=== PATIENT | male | born 1955 | race Two or more races ===

== ENCOUNTER 2018-08-06 18:37 | Inpatient (IN) | payer OTHER ==
[~2018-08-06] VITALS: Ht 170.2 cm; Wt 53.1 kg
[2018-08-06 22:30] VITALS: BP 145/84
--- NOTE | 2018-08-06 22:41 | NUR ---
MS/RN RECEIVED PATIENT FROM [facility] VIA AMBULANCE. PATIENT WAS AOX4, COMFORTABLE, NO C/O PAIN, NO DISTRESS NOTED, PATIENT'S C/C IS NO BOWEL MOVEMENT X 3 DAYS, ENEMA WAS GIVEN IN [facility], PER PATIENT NO BOWEL MOVEMENT YET. ADMISSION WAS DONE PER PROTOCOL, SENT MESSAGE TO DR. ОЛЕГ FRAZIER FOR ADMISSION ORDERS.
[2018-08-06] MEDS ORDERED: TAMS0.4C34 PO (23:10)
[2018-08-06 23:22] VITALS: BP 145/84
[2018-08-07] MEDS ORDERED: ONDANSETRON HCL/PF 4 MG/2 ML VIAL IVP PRN
[2018-08-07] MEDS ORDERED: MAGNESIUM HYDROXIDE 30 ML UDC PO PRN
[2018-08-07] MEDS ORDERED: PIPERACILLIN /TAZOBACTAM 3.375 G in IV D5W 50 ML IV SCH ×2
[2018-08-07] MEDS ORDERED: MORPHINE SULFATE INJ 2 MG/ML DISP.SYRIN IV PRN
[2018-08-07] MEDS ORDERED: LACTULOSE 10 G/15 ML UDC (PYXIS) PO PRN
[2018-08-07] MEDS ORDERED: HYDROCODONE/APAP 5/325MG 1 EACH TABLET PO PRN
[2018-08-07] MEDS ORDERED: Z GUARD REMEDY 2 OZ OINT TP PRN
[2018-08-07] MEDS ORDERED: METRONIDAZOLE 500MG/ NS 100ML 100 ML IV ONE (00:23)
[2018-08-07] MEDS ORDERED: PIPERACILLIN /TAZOBACTAM 3.375 G VIAL IV ONE (00:24)
[2018-08-07] MEDS: IV NS 0.9% 1,000 ML IV PRN ×2 (00:30→16:34)
[2018-08-07] MEDS ORDERED: PIPERACILLIN /TAZOBACTAM 3.375 G in IV D5W 50 ML IV ONE (00:30)
[2018-08-07] MEDS: METRONIDAZOLE 500MG/ NS 100ML 500 MG in PREMIX 1 EA IV SCH ×3 (01:22→16:28)
--- NOTE | 2018-08-07 06:39 | NUR ---
MS/RN PATIENT IS SLEEPING, APPEAR COMFORTABLE, NO DISTRESS NOTED, ALL NEEDS ATTENDED AT THIS TIME, WILL CONTINUE TO MONITOR.
[2018-08-07 07:00] LABS: BASOPHILS % (AUTO) 0.4 % (0.0-2.0); EOSINOPHILS % (AUTO) 0.7 % (0.0-6.0); HEMATOCRIT 36 % (39-51); HEMOGLOBIN 12.1 g/dL (13.5-17.5); LYMPHOCYTES # (AUTO) 2.3 /CMM (0.8-4.8); LYMPHOCYTES % (AUTO) 24.4 % (20.0-44.0); MEAN CORPUSCULAR HGB CONC 33 g/dl (31.0-36.0); MEAN CORPUSCULAR VOLUME 80 fL (80-96); MONOCYTES # (AUTO) 0.8 /CMM (0.1-1.30); MONOCYTES % (AUTO) 9.1 % (2.0-12.0); NEUTROPHILS # (AUTO) 6.1 /CMM (1.8-8.9); NEUTROPHILS % (AUTO) 65.4 % (43.0-81.0); PLATELET COUNT (AUTO) 263 /CMM (150-450); RED BLOOD CELL COUNT(AUTO) 4.58 MIL/uL (4.5-6.0); WHITE BLOOD COUNT (AUTO) 9.3 K/uL (4.3-11.0)
[2018-08-07 07:19] LABS: CALCIUM, SERUM 8.8 mg/dL (8.5-10.1); CREATININE 0.9 mg/dL (0.6-1.3); MAGNESIUM 1.8 mg/dL (1.8-2.4); PHOSPHORUS 2.9 mg/dL (2.5-4.9); POTASSIUM 3.8 mmol/L (3.5-5.1)
--- NOTE | 2018-08-07 07:20 | NUR ---
MSRN. PT RECEIVED A&0X4, AWAKE AND RESTING IN BED WITH T.V. PT TOLERATING ROOM AIR WITHOUT DISTRESS AND DENIES PAIN. PT WITH IVC AT R AC INTACT AND OPERATIONAL WITH IVF PER RX. PT REMAINS WITHOUT BM. PT BED IN LOWEST LOCKED POSITION WITH HANDRAILSX2 AND CALL MEZA WITHIN REACH. PT BRIEFED ON TODAY'S POC AND IS WITHOUT CONCERN OR COMPLAINT AT THIS TIME. WILL CONTINUE POC.
[2018-08-07 07:26] LABS: THYROID STIMULATING HORMONE 1.115 uIU/mL (0.358-3.74)
[2018-08-07 08:00] VITALS: BP 147/75
[2018-08-07] MEDS ORDERED: HYDROMORPHONE INJ 0.5 MG/0.5 ML SYRINGE IV PRN (08:30)
[2018-08-07] MEDS: PIPERACILLIN /TAZOBACTAM 3.375 G in IV D5W 100 ML IV SCH ×3 (09:09→23:27)
[2018-08-07 16:00] VITALS: BP 155/76
[2018-08-07] MEDS ORDERED: BISACODYL SUPP (10 MG) 10 MG/SUPP.RECT SUPP.RECT RC PRN (17:30)
--- NOTE | 2018-08-07 18:09 | NUR ---
MSRN. PT REMAINS A&0X4, WATCHING FOOTBALL IN BED. PT TOLERATING ROOM AIR WITHOUT DISTRESS AND DENIES PAIN. PT WITH IVC AT R AC INTACT AND OPERATIONAL. PT WITH MULTIPLE SML BM DURING SHIFT. PT BED IN LOWEST LOCKED POSITION WITH HANDRAILSX2 AND CALL MEZA WITHIN REACH. PT WITHOUT CONCERN OR COMPLAINT AT THIS TIME. WILL ENDORSE TO NIGHT NURSE AT BEDSIDE FOR NETTA.
[2018-08-07 20:00] VITALS: BP 158/84
[2018-08-07] MEDS: TAMSULOSIN 0.4 MG CAP.SR.24H PO SCH (21:18)
[2018-08-07] MEDS: ACETAMINOPHEN 325 MG TABLET PO PRN (23:40)
--- NOTE | 2018-08-07 23:42 | NUR ---
MS RN NOTES: PT COMPLAINING OF STOMACH PAIN THAT JUST STARTED EVEN WHEN HE IS LAYING DOWN. PT WAS ADMINISTERED TYLENOL 650MG PO. WILL CONTINUE TO MONITOR.
[2018-08-08] MEDS: METRONIDAZOLE 500MG/ NS 100ML 500 MG in PREMIX 1 EA IV SCH ×3 (00:29→16:18)
--- NOTE | 2018-08-08 06:47 | NUR ---
MS RN NOTES AWAKE & RESPONSIVE. NOT IN ANY DISTRESS. NO SOB NOTED. DENIES ANY PAIN OR DISCOMFORT AT THIS TIME. WITH IV-HL PATENT & INTACT. MONITORED ACCORDINGLY. CALL LIGHT WITHIN REACH. BED IN LOWEST POSITION. SR UP X 2 FOR SAFETY. WILL ENDORSE TO NEXT SHIFT.
--- NOTE | 2018-08-08 07:25 | NUR ---
MSRN. PT RECEIVED A&0X4, ATTENDING ADLS. PT TOLERATING ROOM AIR WITHOUT DISTRESS AND DENIES PAIN. PT WITH IVC AT R AC INTACT AND OPERATIONAL REFUSING FLUIDS AT THIS TIME. PT BED IN LOWEST LOCKED POSITION WITH HANDRAILSX2 AND CALL MEZA WITHIN REACH. PT BRIEFED ON TODAY'S POC AND IS WITHOUT CONCERN OR COMPLAINT AT THIS TIME. WILL CONTINUE POC.
[2018-08-08 08:00] VITALS: BP 132/87
[2018-08-08] MEDS: PIPERACILLIN /TAZOBACTAM 3.375 G in IV D5W 100 ML IV SCH ×2 (08:55→15:57)
--- NOTE | 2018-08-08 10:34 | NUR ---
MSRN. MD VALDEZ CONTACTED R/T TO PT AND REQUESTING GI BE ON PT CASE AND REQUESTING CONSENTS FOR CT DRAINAGE OF ABSCESS.
[2018-08-08] MEDS ORDERED: MAGNESIUM CITRATE 296 ML BOTTLE PO PRN (12:00)
[2018-08-08] MEDS ORDERED: NA PHOS,M-B/NA PHOS,DI-BA 1 EA ENEMA RC PRN (12:00)
[2018-08-08 13:15] LABS: BASOPHILS % (AUTO) 0.4 % (0.0-2.0); EOSINOPHILS % (AUTO) 0.5 % (0.0-6.0); HEMATOCRIT 39 % (39-51); HEMOGLOBIN 12.7 g/dL (13.5-17.5); LYMPHOCYTES # (AUTO) 1.8 /CMM (0.8-4.8); LYMPHOCYTES % (AUTO) 19.7 % (20.0-44.0); MEAN CORPUSCULAR HGB CONC 33 g/dl (31.0-36.0); MEAN CORPUSCULAR VOLUME 79 fL (80-96); MONOCYTES # (AUTO) 0.8 /CMM (0.1-1.30); MONOCYTES % (AUTO) 8.5 % (2.0-12.0); NEUTROPHILS # (AUTO) 6.6 /CMM (1.8-8.9); NEUTROPHILS % (AUTO) 70.9 % (43.0-81.0); PLATELET COUNT (AUTO) 318 /CMM (150-450); RED BLOOD CELL COUNT(AUTO) 4.88 MIL/uL (4.5-6.0); WHITE BLOOD COUNT (AUTO) 9.3 K/uL (4.3-11.0)
[2018-08-08 13:28] LABS: CALCIUM, SERUM 9.2 mg/dL (8.5-10.1); POTASSIUM 3.6 mmol/L (3.5-5.1)
[2018-08-08 13:33] LABS: ALBUMIN 3.1 g/dL (3.4-5.0); BILIRUBIN,TOTAL 0.5 mg/dL (0.2-1.0); TOTAL PROTEIN, SERUM 7.7 g/dL (6.4-8.2)
--- NOTE | 2018-08-08 15:30 | NUR ---
MSRN. PT TO 315-1. CARE ENDORSED TO 3WEST DESHAUN GUILLAUME AT BEDSIDE. PT TOLERATING ROOM AIR WITHOUT DISTRESS AND DENIES PAIN OR DISCOMFORT. IVC INTACT AND OPERATIONAL AT R FA. PT WITH ALL BELONGINGS.
--- NOTE | 2018-08-08 15:30 | NUR ---
MS RN NOTES-- RECEIVED PT VIA [employer] IN STABLE CONDITION. REPORT GIVEN BY DESHAUN REYES. PT IS A/O X4, AFEBRILE. RESPIRATIONS ARE EVEN AND UNLABORED, NOT IN ANY ACUTE DISTRESS NOTED . PUPILS ARE REACTIVE TO LIGHT, BILATERAL HAND COLLABORATING SUPERVISING PHYSICIAN ARE STRONG AND EQUAL. DENIES ANY ABDOMINAL DISCOMFORT AT THIS TIME, DENIES ANY BLADDER DISCOMFORT. IV SITE TO LFA INTACT, NO INFILTRATION NOTED. DRESSING KEPT CLEAN AND DRY. SAFETY MEASURES ARE IN PLACE. INSTRUCTED PT TO USE CALL LIGHT WHEN ASSISTANCE IS NEEDED, CALL LIGHT IS LEFT WITHIN REACH. WILL MONITOR THROUGHOUT SHIFT FOR CONTINUITY OF CARE.
[2018-08-08] MEDS ORDERED: PEG 3350/NA SULF,BICARB,CL/KCL 4,000 ML BOTTLE PO ONE (17:00)
[2018-08-08] MEDS: ACETAMINOPHEN 325 MG TABLET PO PRN (17:46)
--- NOTE | 2018-08-08 18:12 | NUR ---
MS RN CLOSING NOTES NEEDS MET AND ANTICIPATED. PT REMAINS A/O X4, AFEBRILE. RESPIRATIONS ARE EVEN AND UNLABORED, NOT IN ANY ACUTE DISTRESS NOTED. DENIES ANY PAIN AT THIS TIME, NO C/O SOB, N/V. IV SITE TO LFA INTACT, NO INFILTRATION NOTED. DRESSING KEPT CLEAN AND DRY. PT SIGNED CONSENT FORMS FOR PROCEDURE TOMORROW WITH VERBAL AND WRITTEN AGREEMENT. PT AWARE GOLYTELY PREP NEEDS TO BE DONE AND STATED HE WILL BE COMPLIANT. SAFETY MEASURES ARE IN PLACE. REMINDED PT TO USE CALL LIGHT WHEN ASSISTANCE IS NEEDED, CALL LIGHT IS LEFT WITHIN REACH. WILL ENDORSE TO NEXT SHIFT FOR CONTINUITY OF CARE.
--- NOTE | 2018-08-08 19:15 | NUR ---
MS/RN OPENING NOTES PT RECEIVED AWAKE, FAMILY AT BEDSIDE. A/OX4. ON ROOM AIR, BREATHING EVEN AND UNLABORED. IN NO ACUTE DISTRESS OR PAIN AT THIS TIME. IV TO LFA PATENT AND INTACT. FOR PROCEDURE TOMORROW, CONSENTS SIGNED. PT AWARE TO FINISH GOLYTELY AND THEN NPO POST MIDNIGHT. BED IN LOW/LOCKED POSITION WITH CALL LIGHT IN REACH. BILATERAL UPPER SIDE RAILS IN PLACE. WILL CONTINUE TO MONITOR
[2018-08-08 20:00] VITALS: BP 139/82
[2018-08-08] MEDS: TAMSULOSIN 0.4 MG CAP.SR.24H PO SCH (21:41)
[2018-08-09] MEDS: PIPERACILLIN /TAZOBACTAM 3.375 G in IV D5W 100 ML IV SCH ×3 (00:03→17:11)
--- NOTE | 2018-08-09 06:36 | NUR ---
MS/RN CLOSING NOTES PT AWAKE, REMAINS ON ROOM AIR, BREATHING EVEN AND UNLABORED. DENIES SOB, PAIN AND IN NO ACUTE DISTRESS AT THIS TIME. NPO POST MIDNIGHT FOR PROCEDURE. CONSENTS SIGNED AND IN THE CHART. NO SIGNFICANT CHANGES OVERNIGHT. IV TO LFA PATENT AND INTACT. ALL NEEDS MET. BED REMAINS IN LOW/LOCKED POSITION WITH CALL LIGHT IN REACH. SIDE RAILS UPX2. WILL ENDORSE TO DAY SHIFT RN NETTA.
--- NOTE | 2018-08-09 07:03 | NUR ---
PT TAKEN DOWN TO OR IN STABLE CONDITION
[2018-08-09] MEDS ORDERED: BUPIVACAINE MPF 0.5% W/EPI INJ 30 ML VIAL ONE (07:12)
[2018-08-09] MEDS ORDERED: ANESTHESIA TRAY IN PYXIS 1 EA TRAY MC ONE (07:12)
[2018-08-09] MEDS ORDERED: LIDOCAINE HCL/PF 1% 30 ML SDV ONE (07:12)
[2018-08-09] MEDS ORDERED: BUPIVACAINE 0.5 % PF 150 MG/30 ML VIAL ONE (07:25)
[2018-08-09] MEDS ORDERED: FENTANYL PF 100MCG/2ML AMPUL ONE (07:48)
--- NOTE | 2018-08-09 08:49 | NUR ---
MS RN NOTES PATIENT CAME BACK FROM RECOVERY ROOM WITH STABLE VITAL SIGNS, REPORT GIVEN BY NED MEADE. NO ACUTE DISTRESS NOTED.BREATHING UNLABORED. ALERT ORIENTED X 4. DENIED ANY PAIN AT THIS TIME. SAFETY MEASURES IN PLACE. CALL LIGHT WITHIN REACH. WILL CONTINUE TO MONITOR ACCORDINGLY.
[2018-08-09] MEDS ORDERED: HYDROCODONE/APAP 5/325MG 1 EACH TABLET PO PRN (09:30)
[2018-08-09] MEDS ORDERED: MORPHINE SULFATE INJ 2 MG/ML DISP.SYRIN IV PRN (09:30)
[2018-08-09 10:26] LABS: BASOPHILS % (AUTO) 0.2 % (0.0-2.0); CALCIUM, SERUM 9.1 mg/dL (8.5-10.1); CREATININE 1.1 mg/dL (0.6-1.3); EOSINOPHILS % (AUTO) 0.2 % (0.0-6.0); HEMATOCRIT 41 % (39-51); HEMOGLOBIN 13.4 g/dL (13.5-17.5); LYMPHOCYTES # (AUTO) 1.1 /CMM (0.8-4.8); LYMPHOCYTES % (AUTO) 8.4 % (20.0-44.0); MAGNESIUM 1.7 mg/dL (1.8-2.4); MEAN CORPUSCULAR HGB CONC 33 g/dl (31.0-36.0); MEAN CORPUSCULAR VOLUME 80 fL (80-96); MONOCYTES # (AUTO) 0.4 /CMM (0.1-1.30); MONOCYTES % (AUTO) 2.7 % (2.0-12.0); NEUTROPHILS % (AUTO) 88.5 % (43.0-81.0); PHOSPHORUS 2.5 mg/dL (2.5-4.9); PLATELET COUNT (AUTO) 348 /CMM (150-450); POTASSIUM 3.4 mmol/L (3.5-5.1); RED BLOOD CELL COUNT(AUTO) 5.14 MIL/uL (4.5-6.0); WHITE BLOOD COUNT (AUTO) 13.5 K/uL (4.3-11.0)
[2018-08-09] MEDS ORDERED: POTASSIUM CL. PREMIX PERIPHER. 50 ML IV SCH (15:00)
[2018-08-09] MEDS ORDERED: Magnesium 1GM/D5W 100ML PREMIX 100 ML IV SCH (15:00)
[2018-08-09 16:00] VITALS: BP 130/81
--- NOTE | 2018-08-09 19:00 | NUR ---
MS RN NOTES PATIENT IN BED ALERT ORIENTED X 4. NO ACUTE DISTRESS NOTED. BREATHING UNLABORED. VITAL SIGNS MONITORED, WITHIN NORMAL LIMITS. DENIED ANY PAIN. IV ACCESS PATENT AND INTACT, NO REDNESS OR SWELLING NOTED.NEEDS ATTENDED AND ANTICIPATED. KEPT CLEAN DRY AND COMFORTABLE. DUE MEDICATIONS GIVEN, NO ASE NOTED. CALL LIGHT WITHIN REACH. SAFETY MEASURES IN PLACE. ENDORSED TO NIGHT NURSE FOR CONTINUITY OF CARE..
--- NOTE | 2018-08-09 19:33 | NUR ---
RN MS OPENING NOTES RECEIVED PATIENT RESTING IN BED. ALERT AND ORIENTED X4, VERBALLY RESPONSIVE, ABLE TO MAKE NEEDS KNOWN. BREATHING EVEN AND UNLABORED. NO SOB NOTED. TOLERATING ROOM AIR. CURRENTLY WITH NO COMPLAINTS OF PAIN OR DISCOMFORT. NO FACIAL GRIMACING. IV ON RIGHT FA G#20 INTACT AND PATENT WITH NS RUNNING AT 75ML/HR. SKIN DRY AND WARM TO TOUCH. AFEBRILE. ALL OTHER NEEDS ATTENDED TO. SAFETY MEASURES IN PLACE. CALL LIGHT WITHIN REACH. WILL CONTINUE TO MONITOR.
[2018-08-09 20:47] VITALS: BP 145/81
[2018-08-09] MEDS: TAMSULOSIN 0.4 MG CAP.SR.24H PO SCH (21:12)
--- NOTE | 2018-08-09 21:45 | NUR ---
RN MS NOTES PATIENT IS REFUSING HIS IVF AT THE MOMENT DUE TO CONSTANT "PEEING." PER PATIENT, HE HAS GONE TO THE BATHROOM ABOUT "10 TIMES" ALREADY. PATIENT REQUESTED TO BE TAKEN OFF THE FLUIDS. PATIENT ABLE TO DRINK WATER WELL WITH NO ISSUES. WILL CONTINUE TO MONITOR.
[2018-08-10] MEDS: PIPERACILLIN /TAZOBACTAM 3.375 G in IV D5W 100 ML IV SCH ×2 (00:37→09:18)
[2018-08-10 06:38] LABS: CALCIUM, SERUM 8.6 mg/dL (8.5-10.1); CREATININE 1.1 mg/dL (0.6-1.3); MAGNESIUM 2.1 mg/dL (1.8-2.4); PHOSPHORUS 3.1 mg/dL (2.5-4.9); POTASSIUM 3.5 mmol/L (3.5-5.1)
--- NOTE | 2018-08-10 06:40 | NUR ---
RN MS CLOSING NOTES PATIENT RESTING IN BED. NO ACUTE CHANGES THROUGHOUT SHIFT. BREATHING EVEN AND UNLABORED. NO SOB NOTED. TOLERATING ROOM AIR. CURRENTLY WITH NO COMPLAINTS OF PAIN OR DISCOMFORT. NO FACIAL GRIMACING. IV ON RIGHT FA G#20 INTACT AND PATENT - NO FLUIDS RUNNING DUE TO PATIENT'S REFUSAL DESPITE EXPLANATION OF RISKS AND BENEFITS. SKIN DRY AND WARM TO TOUCH. AFEBRILE. ALL OTHER NEEDS ATTENDED TO. SAFETY MEASURES IN PLACE. CALL LIGHT WITHIN REACH. WILL ENDORSE TO ONCOMING NURSE FOR CONTINUITY OF CARE.
[2018-08-10 06:41] LABS: BASOPHILS % (AUTO) 0.2 % (0.0-2.0); EOSINOPHILS % (AUTO) 0.4 % (0.0-6.0); HEMATOCRIT 36 % (39-51); HEMOGLOBIN 12.1 g/dL (13.5-17.5); LYMPHOCYTES # (AUTO) 2.7 /CMM (0.8-4.8); LYMPHOCYTES % (AUTO) 26.8 % (20.0-44.0); MEAN CORPUSCULAR HGB CONC 33 g/dl (31.0-36.0); MEAN CORPUSCULAR VOLUME 80 fL (80-96); MONOCYTES # (AUTO) 0.9 /CMM (0.1-1.30); MONOCYTES % (AUTO) 8.8 % (2.0-12.0); NEUTROPHILS # (AUTO) 6.5 /CMM (1.8-8.9); NEUTROPHILS % (AUTO) 63.8 % (43.0-81.0); PLATELET COUNT (AUTO) 301 /CMM (150-450); RED BLOOD CELL COUNT(AUTO) 4.58 MIL/uL (4.5-6.0); WHITE BLOOD COUNT (AUTO) 10.2 K/uL (4.3-11.0)
--- NOTE | 2018-08-10 07:30 | NUR ---
RECEIVED PT. ALERT AND ORIENTED X3.NO COMPLAINTS.
[2018-08-10 08:00] VITALS: BP 130/76
--- NOTE | 2018-08-10 11:30 | NUR ---
JONEL SIMONS NP HERE AND WAITING FOR CULTURE REPORTS THEN POSSIBE DC TODAY.
--- NOTE | 2018-08-10 12:40 | NUR ---
DR. VALDEZ CONTACTED TO CHANGE DIET AND OK,D DC TODAY LONG PT. HAS ANTIBIOTIC AND FOLLOWS UP WITH SURGEON POST DC.RN MADE NOTE.
[2018-08-10] MEDS ORDERED: AMOX-430 PO (15:35)
--- NOTE | 2018-08-10 16:00 | NUR ---
REFUSED INFUSION OF MAIN IV TODAY.
--- NOTE | 2018-08-10 16:15 | NUR ---
RECEIVED FINAL WORD FROM [facility] FOR DC TODAY. PAPERS MADE READY,BELONGING SHEET SIGNED ALONG WITH OTHER PAPERS.HEP LOCK OUT. PT. AWARE OF ANTIBIOTIC RX CALLED IN TO HIS [facility].WALKED DOWN TO LOBBY ACC. BY DISASTER RECOVERY ANALYST.DTR. TO TRANSPORT.PT. AWARE TO MAKE APPT. FOR SURGEON AND MEDICAL DREmilie FOR NEXT WEEK.
== END 2018-08-10 16:30 | disposition home or self-care (01) | DRG 244 ==
LOC: MEDSG2 21:49 → MED 08-08 15:25
PROVIDERS: ADMIT Nurse Practitioner Acute Care; ATTEND Student in an Organized Health Care Education/Training Program
PROC: 0DJD8ZZ Inspection of Lower Intestinal Tract, Via Natural or Artificial Opening Endoscopic (ICD-10-PCS; principal; 2018-08-09)
PROC: 0W9J3ZZ Drainage of Pelvic Cavity, Percutaneous Approach (ICD-10-PCS; principal; 2018-08-09)
DX: K57.20 Diverticulitis of large intestine with perforation and abscess without bleeding (principal); E44.1 Mild protein-calorie malnutrition; E83.42 Hypomagnesemia; E88.09 Other disorders of plasma-protein metabolism, not elsewhere classified; D64.9 Anemia, unspecified; K59.00 Constipation, unspecified; N40.0 Benign prostatic hyperplasia without lower urinary tract symptoms; Z68.1 Body mass index [BMI] 19.9 or less, adult; D72.829 Elevated white blood cell count, unspecified
CPT/HCPCS: 36415; 80048-TC; 80053-TC; 80061-TC; 83735-TC; 84100-TC; 84443-TC; 85025-TC; 85610-TC; 85730-TC; 87070-TC; 87081-TC; 93307-TC; A4216; A6253; A6402; G0378; J1100; J1885; J2543; J3010; J3475; J3480; J3490; J7030; J7060

== ENCOUNTER 2018-12-25 22:54 | Inpatient (IN) | payer MEDICARE, OTHER ==
[~2018-12-25] VITALS: Ht 167.6 cm; Wt 55.4 kg
[~2018-12-25 22:54] MED LIST: AMOX-430 PO; TAMS0.4C34 PO
--- NOTE | 2018-12-25 23:25 | NUR ---
PT BIBSELF C/O ABD PAIN DUE TO CONSTIPATION X 5 DAYS. PATIENT STATES LAST NORMAL BM WAS 5 DAYS. PT AOX4. PT ON MONITOR IN BED 3. WILL CONTINUE TO MONITOR.
--- NOTE | 2018-12-25 23:35 | NUR ---
PT TAKEN TO RADIOLOGY VIA ANNETTE
--- NOTE | 2018-12-25 23:42 | NUR ---
PT RETURNED FROM CT. TOLERATED WELL.
--- NOTE | 2018-12-26 00:37 | NUR ---
CALLED [facility] FOR CT READ.
--- NOTE | 2018-12-26 02:51 | NUR ---
TECH AT BEDSIDE FOR EKG
[2018-12-26] MEDS ORDERED: ONDANSETRON HCL/PF 4 MG/2 ML VIAL IVP ONE (03:00)
[2018-12-26] MEDS ORDERED: IV NS 0.9% 500 ML BAG IV ONE (03:00)
[2018-12-26] MEDS ORDERED: MORPHINE SULFATE INJ 2 MG/ML DISP.SYRIN IV ONE (03:00)
[2018-12-26] MEDS ORDERED: CIPROFLOXACIN IV RTU 400 MG in PREMIX 1 EA IV SCH (03:00)
[2018-12-26] MEDS ORDERED: FLAGYL/NS RTU 500 MG/100 ML PIGGYBACK IV ONE (03:00)
[2018-12-26] MEDS ORDERED: CIPROFLOXACIN IV RTU 200 ML IV ONE (03:03)
[2018-12-26] MEDS ORDERED: METRONIDAZOLE 500MG/ NS 100ML 100 ML IV ONE (03:03)
[2018-12-26] MEDS ORDERED: MORPHINE SULFATE INJ 4 MG/ML DISP.SYRIN ONE (03:04)
[2018-12-26] MEDS ORDERED: ONDANSETRON HCL/PF 4 MG/2 ML VIAL ONE (03:04)
[2018-12-26 03:08] LABS: BASOPHILS % (AUTO) 0.2 % (0.0-2.0); EOSINOPHILS % (AUTO) 0.1 % (0.0-6.0); HEMATOCRIT 38 % (39-51); HEMOGLOBIN 12.7 g/dL (13.5-17.5); LYMPHOCYTES # (AUTO) 1.8 /CMM (0.8-4.8); LYMPHOCYTES % (AUTO) 14.6 % (20.0-44.0); MEAN CORPUSCULAR HGB CONC 34 g/dl (31.0-36.0); MEAN CORPUSCULAR VOLUME 78 fL (80-96); MONOCYTES % (AUTO) 7.8 % (2.0-12.0); NEUTROPHILS # (AUTO) 9.5 /CMM (1.8-8.9); NEUTROPHILS % (AUTO) 77.3 % (43.0-81.0); PLATELET COUNT (AUTO) 249 /CMM (150-450); RED BLOOD CELL COUNT(AUTO) 4.81 MIL/uL (4.5-6.0); WHITE BLOOD COUNT (AUTO) 12.3 K/uL (4.3-11.0)
--- NOTE | 2018-12-26 03:28 | NUR ---
Patient is resting comfortably in bed with eyes closed. Easily aroused. VSS.
[2018-12-26 03:29] LABS: ALBUMIN 3.1 g/dL (3.4-5.0); BILIRUBIN,DIRECT 0.1 mg/dL (0.0-0.2); BILIRUBIN,TOTAL 0.6 mg/dL (0.2-1.0); CREATININE 0.9 mg/dL (0.6-1.3); POTASSIUM 3.4 mmol/L (3.5-5.1); TOTAL PROTEIN, SERUM 7.6 g/dL (6.4-8.2)
--- NOTE | 2018-12-26 04:29 | NUR ---
REPORT GIVEN TO DESHAUN RODRIGUES FOR NETTA
[2018-12-26] MEDS ORDERED: ONDANSETRON HCL/PF 4 MG/2 ML VIAL IVP PRN (04:30)
[2018-12-26] MEDS ORDERED: MAGNESIUM HYDROXIDE 30 ML UDC PO PRN (04:30)
[2018-12-26] MEDS ORDERED: SORBITOL SOLUTION 30 ML PO ONE (04:30)
[2018-12-26] MEDS ORDERED: ZOLPIDEM TARTRATE 5 MG TABLET PO PRN (04:30)
[2018-12-26] MEDS ORDERED: ACETAMINOPHEN 325 MG TABLET PO PRN (04:30)
[2018-12-26] MEDS: IV NS 0.9% 1,000 ML IV PRN (05:05)
--- NOTE | 2018-12-26 05:15 | NUR ---
MS/RN OPENING NOTES PT RECEIVED FROM ER VIA WHEELCHAIR. PT IS A/OX4. ON ROOM AIR, BREATHING EVEN AND UNLABORED. DENIES SOB AND NOTES BILATERAL LOWER ABDOMINAL PAIN 2/10 AT THIS TIME. IV TO RAC PATENT AND INTACT. ORIENTED PT TO ROOM AND CALL LIGHT. PT AWARE OF CLEAR LIQUID DIET. WATER PITCHER AND URINAL PROVIDED PER PT REQUEST. BELONGINGS LIST COMPLETED. NO ADDITIONAL NEEDS EXPRESSED AT THIS TIME. BED IN LOW/LOCKED POSITION WITH CALL LIGHT IN REACH. BILAT. UPPER SIDE RAILS IN PLACE AND IN SEMI FOWLERS POSITION. WILL CONTINUE TO MONITOR
[2018-12-26 05:30] VITALS: BP 131/69
[2018-12-26 06:19] VITALS: BP 131/69
--- NOTE | 2018-12-26 07:14 | NUR ---
MS/RN CLOSING NOTES PT ASLEEP, RESPONSIVE TO NAME. ON ROOM AIR, BREATHING EVEN AND UNLABORED. DENIES SOB AND PAIN AT THIS TIME. NO SIGNIFICANT CHANGES. IV TO RAC PATENT AND INTACT RUNNING IVF ORDERED. BED IN LOW/LOCKED POSITION WITH CALL LIGHT IN REACH. SEMI FOWLERS POSITION, BILAT. UPPER SIDE RAILS IN PLACE. ENDORSED TO DAY SHIFT RN NETTA.
[2018-12-26 07:30] VITALS: BP 140/77
--- NOTE | 2018-12-26 07:30 | NUR ---
m/s calendering machine operator: initial assessment received pt in bed awake, a/ox4. pt last bowel movement was 5 days ago as stated. encourage to ambulate and fluids. instructed to call for assistance. will continue to monitor.
[2018-12-26 08:00] VITALS: BP 140/77
--- NOTE | 2018-12-26 08:15 | NUR ---
m/s furniture reproducer: notes pt just move his bowel at this time. instructed to call for assistance. will continue to monitor.
[2018-12-26] MEDS: METRONIDAZOLE 500MG/ NS 100ML 500 MG in PREMIX 1 EA IV SCH ×2 (09:50→17:46)
--- NOTE | 2018-12-26 10:00 | NUR ---
m/s cover maker: notes pt asleep at this time. call light within reach. will continue to monitor.
[2018-12-26] MEDS ORDERED: POTASSIUM CHLORIDE 20 MEQ POWDER PACKET PO SCH (12:00)
[2018-12-26] MEDS: HYDROCODONE/APAP 5/325MG 1 EACH TABLET PO PRN ×3 (12:08→22:36)
--- NOTE | 2018-12-26 12:08 | NUR ---
m/s bushing press operator: notes c/o 7/10 lower abdomen pain, medicated with norco 1 tab po as ordered. pt doesn't want his lunch (clear liquid diet). pt for gi consult and made aware. will continue to monitor.
--- NOTE | 2018-12-26 13:08 | NUR ---
m/s polysomnograph tech: notes pt in bed with eyes close. no s/s of distress. call light within reach.
--- NOTE | 2018-12-26 13:30 | NUR ---
m/s color tester: notes devon (gi, facilities officer) here and reminded her for gi consult due to colitis, stated, "okay, i will see him."
[2018-12-26] MEDS: CIPROFLOXACIN IV RTU 400 MG in PREMIX 1 EA IV SCH (15:51)
[2018-12-26 16:00] VITALS: BP 169/83
--- NOTE | 2018-12-26 16:25 | NUR ---
m/s health teacher: gi consult seen by devon coon) at this time. pt remains on clear liquid diet. instructed to call for assistance. will continue to monitor.
--- NOTE | 2018-12-26 16:41 | NUR ---
m/s driver sales: notes c/o 01/11 lower abdomen pain, medicated with norco 1 tab po as ordered. instructed to call for assistance.
--- NOTE | 2018-12-26 17:41 | NUR ---
m/s resources representative: notes pt has slight abdominal discomfort, but tolerable. instructed to call for assistance. call light within reach.
--- NOTE | 2018-12-26 18:45 | NUR ---
m/s dictating transcribing machine servicer: notes pt sounds asleep. no distress noted. needs attended. iv fluids infusing well. call light within reach. will continue to monitor.
[2018-12-26 20:00] VITALS: BP 140/80
--- NOTE | 2018-12-26 20:20 | NUR ---
MS RN NOTES RECEIVED PATIENT AWAKE IN BED WITH NO DISTRESS NOTED. CALL LIGHT WITHIN REACH. PERIPHERAL LINE INTACT AND PATENT. NO C/O PAIN OR DISCOMFORT. BED IN LOW LOCK SETTING. ROOM FREE OF CLUTTER AND BELONGINGS KEPT NEAR BEDSIDE. WILL CONTINUE TO MONITOR.
[2018-12-26] MEDS: TAMSULOSIN 0.4 MG CAP.SR.24H PO SCH (21:19)
[2018-12-27] MEDS: HYDROCODONE/APAP 5/325MG 1 EACH TABLET PO PRN ×5 (02:59→21:16)
[2018-12-27] MEDS: METRONIDAZOLE 500MG/ NS 100ML 500 MG in PREMIX 1 EA IV SCH ×3 (03:00→17:22)
[2018-12-27] MEDS: IV NS 0.9% 1,000 ML IV PRN (03:00)
[2018-12-27] MEDS: CIPROFLOXACIN IV RTU 400 MG in PREMIX 1 EA IV SCH ×2 (04:03→15:53)
[2018-12-27 07:10] LABS: BASOPHILS % (AUTO) 0.3 % (0.0-2.0); EOSINOPHILS % (AUTO) 0.2 % (0.0-6.0); HEMATOCRIT 39 % (39-51); HEMOGLOBIN 12.7 g/dL (13.5-17.5); LYMPHOCYTES # (AUTO) 2.2 /CMM (0.8-4.8); LYMPHOCYTES % (AUTO) 18.3 % (20.0-44.0); MEAN CORPUSCULAR HGB CONC 33 g/dl (31.0-36.0); MEAN CORPUSCULAR VOLUME 79 fL (80-96); MONOCYTES % (AUTO) 8.4 % (2.0-12.0); NEUTROPHILS # (AUTO) 8.7 /CMM (1.8-8.9); NEUTROPHILS % (AUTO) 72.8 % (43.0-81.0); PLATELET COUNT (AUTO) 260 /CMM (150-450); RED BLOOD CELL COUNT(AUTO) 4.87 MIL/uL (4.5-6.0); WHITE BLOOD COUNT (AUTO) 11.9 K/uL (4.3-11.0)
[2018-12-27 07:26] LABS: CALCIUM, SERUM 8.8 mg/dL (8.5-10.1); CREATININE 0.9 mg/dL (0.6-1.3); MAGNESIUM 1.7 mg/dL (1.8-2.4); PHOSPHORUS 2.1 mg/dL (2.5-4.9); POTASSIUM 3.4 mmol/L (3.5-5.1)
[2018-12-27] MEDS: PANTOPRAZOLE 40 MG TABLET.DR PO SCH (07:29)
--- NOTE | 2018-12-27 07:30 | NUR ---
RN AM SHIFT NOTE PATIENT IN BED, ALERT AND ORIENTED X4. PARTICPATING IN CARE. COMPLAINTS OF PAIN NOTED. 04/13. CLEAR LIGQUID DIET NOTED IV PATENT AND INTACT. BED IN LOW POSITION AND CALL LIGHT WITHIN REACH. ALL NEEDS MET AT THIS TIME. CONTINUE TO MONITOR.
[2018-12-27 08:00] VITALS: BP 157/93
--- NOTE | 2018-12-27 09:30 | NUR ---
RN VITALS NOTE RN RE ASSESSED VITALS, BLOOD PRESSURE READING 143/84 NOT 157/93.
[2018-12-27] MEDS: Magnesium 1GM/D5W 100ML PREMIX 100 ML IV SCH ×2 (09:45→10:35)
[2018-12-27] MEDS ORDERED: POTASSIUM CHLORIDE 20 MEQ TAB.PRT.SR PO SCH (10:30)
[2018-12-27] MEDS: NICOTINE PATCH (21MG) 21 MG PATCH.TD24 TD SCH (11:24)
[2018-12-27] MEDS ORDERED: POTASSIUM CHLORIDE 20 MEQ POWDER PACKET NG SCH (12:30)
[2018-12-27] MEDS ORDERED: NEUTRA PHOS 1 POWD.PACKET PO ONE (13:00)
[2018-12-27 14:28] LABS: IRON, SERUM 25 ug/dl (50-175); TOTAL IRON BINDING CAPACITY 224 ug/dl (250-450)
[2018-12-27 14:42] LABS: FERRITIN 357 ng/mL (8-388)
[2018-12-27 16:00] VITALS: BP 153/92
--- NOTE | 2018-12-27 19:30 | NUR ---
MS/RN RECEIVE PATIENT AWAKE, ALERT, ORIENTED, COMFORTABLE, NO C/O PAIN, NO DISTRESS NOTED, CALL LIGHT IN REACH. WILL MONITOR.
[2018-12-27 20:00] VITALS: BP 142/71
[2018-12-27] MEDS: TAMSULOSIN 0.4 MG CAP.SR.24H PO SCH (21:15)
[2018-12-28] MEDS: HYDROCODONE/APAP 5/325MG 1 EACH TABLET PO PRN ×3 (00:28→09:36)
[2018-12-28] MEDS: METRONIDAZOLE 500MG/ NS 100ML 500 MG in PREMIX 1 EA IV SCH ×3 (02:37→17:39)
[2018-12-28] MEDS: IV NS 0.9% 1,000 ML IV PRN (02:47)
[2018-12-28] MEDS: CIPROFLOXACIN IV RTU 400 MG in PREMIX 1 EA IV SCH ×2 (04:33→16:09)
--- NOTE | 2018-12-28 06:21 | NUR ---
MS/RN PATIENT IS STILL SLEEPING AT THIS TIME, APPEAR COMFORTABLE, NO DISTRESS NOTED, ALL NEEDS ATTENDED AT THIS TIME. WILL CONTINUE TO MONITOR.
[2018-12-28 07:12] LABS: CALCIUM, SERUM 8.7 mg/dL (8.5-10.1); CREATININE 0.9 mg/dL (0.6-1.3); MAGNESIUM 1.9 mg/dL (1.8-2.4); PHOSPHORUS 2.7 mg/dL (2.5-4.9)
--- NOTE | 2018-12-28 07:30 | NUR ---
RN NOTES RECEIVED PATIENT IN BED, A/A/O X4, ABLE TO MAKE NEEDS KNOWN . NO APPARENT DISTRESS AT THIS TIME. ON ROOM AIR BREATHING UNLABORED. NO COMPLAINTS OF PAIN OF ANY KIND AT THIS TIME. IV LINE ON THE LAC G #[address] AND INTACT, PATENT ON FLUSHING. DRESSING C/D/I. WITH ONGOING IVF OF NS AT 75CC/HR. PATIENT ENCOURAGE TO CALL FOR HELP/ ASSISTANCE IF NEEDED. SAFETY MEASURES OBSERVED AND MAINTAINED. BED LOW AND LOCKED POSITION. CALL LIGHT PLACED WITHIN RANGE. WILL CONTINUE TO MONITOR AND ANTICIPATE NEEDS
[2018-12-28 08:00] VITALS: BP 133/94
[2018-12-28] MEDS: NICOTINE PATCH (21MG) 21 MG PATCH.TD24 TD SCH (09:31)
[2018-12-28] MEDS: PANTOPRAZOLE 40 MG TABLET.DR PO SCH (09:31)
[2018-12-28 10:00] VITALS: BP 133/94
[2018-12-28] MEDS ORDERED: DIATR MEGLU/DIATRIZOATE SODIUM 30 ML BOTTLE (GASTROGRAPHIN) ONE (10:24)
[2018-12-28] MEDS ORDERED: CT SWABBABLE VALVE TRANS SET 1 EA INFUS.SET MC ONE (13:40)
[2018-12-28] MEDS ORDERED: IOHEXOL-300 100 ML VIAL IV ONE (13:40)
[2018-12-28] MEDS ORDERED: IV NS 0.9% 250 ML IV ONE (13:40)
[2018-12-28 16:00] VITALS: BP 158/82
--- NOTE | 2018-12-28 16:00 | NUR ---
RN NOTES OBTAINED CONSENT FOR PROCEDURE
[2018-12-28] MEDS: ENSURE CLEAR 237 ML LIQUID (MIX BERRY) PO SCH ×2 (16:10→17:00)
--- NOTE | 2018-12-28 19:11 | NUR ---
RN NOTES ENDORSED PATIENT FOR CONTINUITY OF CARE. NOT ON ANY FORM OF DISTRESS. NO ACUTE CHANGES WITHIN THE SHIFT. ALL NURSING NEEDS ATTENDED AND MET. SAFETY MEASURES IN PLACE AT ALL TIME. CALL LIGHT WITHIN REACH
--- NOTE | 2018-12-28 19:41 | NUR ---
MS/RN RECEIVE PATIENT AWAKE, ALERT, ORIENTED, COMFORTABLE, NO C/O PAIN AT THIS TIME, NO DISTRESS NOTED, PLAN OF CARE RE: SURGERY IN A.M. DISCUSSED, VERBALIZED UNDERSTANDING AND AGREEMENT TO THE PLAN OF CARE. WILL MONITOR.
[2018-12-28 20:00] VITALS: BP 155/77
[2018-12-28] MEDS: TAMSULOSIN 0.4 MG CAP.SR.24H PO SCH (21:31)
[2018-12-28] MEDS: MORPHINE SULFATE INJ 4 MG/ML DISP.SYRIN IV PRN (21:57)
--- NOTE | 2018-12-28 22:00 | NUR ---
MS/RN IV NOT FLUSHING, REMOVED IV AND INSERTED A NEW IV AT LEFT F/A G22.
--- NOTE | 2018-12-28 22:39 | NUR ---
MS/RN PATIENT IS SLEEPING AT THIS TIME, APPEAR COMFORTABLE, BREATHING EVEN AND UNLABORED, CALL LIGHT IN REACH. WILL CONTINUE TO MONITOR.
[2018-12-29] VITALS (13 sets, daily range): BP systolic 135–156; BP diastolic 71–98
[2018-12-29] MEDS: METRONIDAZOLE 500MG/ NS 100ML 500 MG in PREMIX 1 EA IV SCH ×3 (02:12→17:57)
[2018-12-29] MEDS: MORPHINE SULFATE INJ 4 MG/ML DISP.SYRIN IV PRN ×4 (02:47→12:51)
[2018-12-29] MEDS: CIPROFLOXACIN IV RTU 400 MG in PREMIX 1 EA IV SCH ×2 (03:54→16:35)
[2018-12-29] MEDS: IV NS 0.9% 1,000 ML IV PRN (04:02)
--- NOTE | 2018-12-29 06:26 | NUR ---
MS/RN PATIENT IS STILL SLEEPING AT THIS TIME, AROUSABLE, APPEAR COMFORTABLE, NO SIGNS OF DISTRESS NOTED, CALL LIGHT IN REACH. ALL NEEDS ATTENDED AT THIS TIME, WILL CONTINUE TO MONITOR.
[2018-12-29] MEDS: PANTOPRAZOLE 40 MG TABLET.DR PO SCH (07:30)
[2018-12-29] MEDS: ENSURE CLEAR 237 ML LIQUID (MIX BERRY) PO SCH ×3 (08:00→17:00)
--- NOTE | 2018-12-29 08:00 | NUR ---
MS RN NOTES PATIENT IN BED RESTING NO SOB OR ACUTE DISTRESS NOTED. PATIENT ALERT, ORIENTED X3. PAIN IS CONTROLLED WITH MEDICATIONS. PATIENT NPO FOR SURGERY. PERIPHERAL IV INTACT PATENT. BED IN LOW LOCKED POSITION, CALL LIGHT WITHIN REACH. WILL CONTINUE TO MONITOR.
[2018-12-29] MEDS: NICOTINE PATCH (21MG) 21 MG PATCH.TD24 TD SCH (08:13)
[2018-12-29 12:46] LABS: BASOPHILS % (AUTO) 0.2 % (0.0-2.0); EOSINOPHILS % (AUTO) 0.2 % (0.0-6.0); HEMATOCRIT 36 % (39-51); HEMOGLOBIN 11.8 g/dL (13.5-17.5); LYMPHOCYTES # (AUTO) 1.3 /CMM (0.8-4.8); LYMPHOCYTES % (AUTO) 10.1 % (20.0-44.0); MEAN CORPUSCULAR HGB CONC 33 g/dl (31.0-36.0); MEAN CORPUSCULAR VOLUME 79 fL (80-96); MONOCYTES # (AUTO) 1.4 /CMM (0.1-1.30); MONOCYTES % (AUTO) 10.2 % (2.0-12.0); NEUTROPHILS # (AUTO) 10.5 /CMM (1.8-8.9); NEUTROPHILS % (AUTO) 79.3 % (43.0-81.0); PLATELET COUNT (AUTO) 294 /CMM (150-450); WHITE BLOOD COUNT (AUTO) 13.2 K/uL (4.3-11.0)
[2018-12-29 12:51] LABS: CALCIUM, SERUM 8.9 mg/dL (8.5-10.1); MAGNESIUM 1.7 mg/dL (1.8-2.4); PHOSPHORUS 2.9 mg/dL (2.5-4.9); POTASSIUM 3.9 mmol/L (3.5-5.1)
--- NOTE | 2018-12-29 12:51 | NUR ---
MS RN NOTES PATIENT RETURNED FROM OR IN STABLE CONDITION. VS WNL PATIENT REPORTS PAIN 10/10 MORPHINE ADMINISTERED ORDERED. WILL CONTINUE TO MONITOR CLOSELY.
--- NOTE | 2018-12-29 18:27 | NUR ---
MS RN NOTES PATIENT IN BED RESTING NO SOB OR ACUTE DISTRESS NOTED. PATIENT ALERT, ORIENTED X3 SLEEPING IN BED. ALL DUE MEDICATIONS ADMINISTERED. ALL NEEDS MET. NO ACUTE CHANGES DURING HOSPITALIZATION. WILL ENDORSE CARE TO PM SHIFT.
--- NOTE | 2018-12-29 19:35 | NUR ---
RN OPENING NOTES RECEIVED REPORT FROM DAYSNYFT RN, CECILE. FOUND Pt AWAKE, RESTING IN BED. NO S/S OF ACUTE DISTRESS OR SOB NOTED. RESPIRATIONS EVEN AND UNLABORED. Pt IS A/OX4, VERBAL, ABLE TO MAKE NEEDS KNOWN. IV ACCESS ON LFA #22G. SAFETY MEASURES IN PLACE. BED LOW, LOCKED, HOB ELEVATED, SIDE RAILS UP, CALL LIGHT AND BEDSIDE TABLE WITHIN REACH. WILL CONTINUE TO MONITOR Pt's CONDITION AND SAFETY THROUGHOUT THE NIGHT.
[2018-12-29] MEDS: TAMSULOSIN 0.4 MG CAP.SR.24H PO SCH (20:46)
--- NOTE | 2018-12-29 22:33 | NUR ---
RN NOTES GAVE ENDORSEMENT TO DESHAUN NGUYEN FOR Pt's NETTA. Pt IS RESTING COMFORTABLY IN BED. NO S/S OF ACUTE DISTRESS OR SOB NOTED.
[2018-12-30] MEDS: METRONIDAZOLE 500MG/ NS 100ML 500 MG in PREMIX 1 EA IV SCH ×3 (02:24→17:23)
[2018-12-30] MEDS: IV NS 0.9% 1,000 ML IV PRN (04:12)
[2018-12-30] MEDS: CIPROFLOXACIN IV RTU 400 MG in PREMIX 1 EA IV SCH ×2 (04:12→15:33)
[2018-12-30 06:47] LABS: BASOPHILS % (AUTO) 0.2 % (0.0-2.0); EOSINOPHILS % (AUTO) 0.2 % (0.0-6.0); HEMATOCRIT 34 % (39-51); HEMOGLOBIN 11.1 g/dL (13.5-17.5); LYMPHOCYTES # (AUTO) 1.9 /CMM (0.8-4.8); LYMPHOCYTES % (AUTO) 12.8 % (20.0-44.0); MEAN CORPUSCULAR HGB CONC 33 g/dl (31.0-36.0); MEAN CORPUSCULAR VOLUME 79 fL (80-96); MONOCYTES # (AUTO) 1.4 /CMM (0.1-1.30); MONOCYTES % (AUTO) 9.7 % (2.0-12.0); NEUTROPHILS # (AUTO) 11.3 /CMM (1.8-8.9); NEUTROPHILS % (AUTO) 77.1 % (43.0-81.0); PLATELET COUNT (AUTO) 296 /CMM (150-450); RED BLOOD CELL COUNT(AUTO) 4.28 MIL/uL (4.5-6.0); WHITE BLOOD COUNT (AUTO) 14.6 K/uL (4.3-11.0)
--- NOTE | 2018-12-30 06:50 | NUR ---
MS RN NOTES PATIENT ASLEEP IN BED WITH NO DISTRESS NOTED. CALL LIGHT WITHIN REACH. ALL DUE MEDS GIVEN ORDERED WITH NO ASE NOTED. PERIPHERAL LINE INTACT AND PATENT. NO C/O PAIN OR DISCOMFORT. BED IN LOW LOCK SETTING. ROOM FREE OF CLUTTER AND BELONGINGS KEPT NEAR BEDSIDE. WILL CONTINUE TO MONITOR.
[2018-12-30 07:03] LABS: CALCIUM, SERUM 8.3 mg/dL (8.5-10.1); CREATININE 0.9 mg/dL (0.6-1.3); POTASSIUM 3.4 mmol/L (3.5-5.1)
--- NOTE | 2018-12-30 07:10 | NUR ---
MS RN NOTES PATIENT IN BED ALERT ORIENTED X 3. NO ACUTE DISTRESS NOTED. BREATHING UNLABORED. NO SOB NOTED. IV ACCESS PATENT AND INTACT, NO REDNESS OR SWELLING NOTED. SAFETY MEASURES IN PLACE. CALL LIGHT WITHIN REACH. WILL CONTINUE TO MONITOR ACCORDINGLY.
[2018-12-30 08:00] VITALS: BP_SYST 122; BP_SYST 125; BP_DIAS 69; BP_DIAS 88
[2018-12-30] MEDS: ENSURE CLEAR 237 ML LIQUID (MIX BERRY) PO SCH ×2 (08:00→12:00)
[2018-12-30] MEDS: NICOTINE PATCH (21MG) 21 MG PATCH.TD24 TD SCH (08:10)
[2018-12-30] MEDS: PANTOPRAZOLE 40 MG TABLET.DR PO SCH (08:10)
[2018-12-30] MEDS ORDERED: POTASSIUM CHLORIDE 20 MEQ TAB.PRT.SR PO SCH (12:30)
[2018-12-30 16:00] VITALS: BP 119/68
[2018-12-30] MEDS: DOCUSATE SODIUM 100 MG CAPSULE PO SCH (17:23)
--- NOTE | 2018-12-30 18:53 | NUR ---
MS RN NOTES PATIENT IN BED ALERT ORIENTED X 3. NO ACUTE DISTRESS NOTED. BREATHING UNLABORED. NO SOB NOTED. IV ACCESS PATENT AND INTACT, NO REDNESS OR SWELLING NOTED. DUE MEDICATIONS GIVEN, NO ASE NOTED. NEEDS ATTENDED AND ANTICIPATED. KEPT CLEAN DRY AND COMFORTABLE. SAFETY MEASURES IN PLACE. CALL LIGHT WITHIN REACH. WILL ENDORSE TO NIGHT NURSE FOR CONTINUITY OF CARE.
--- NOTE | 2018-12-30 19:15 | NUR ---
MS RN NOTE RECEIVED PT IN STABLE CONDITION A&O X4, ABLE TO MAKE NEEDS KNOWN. CURRENTLY IN BED WATCHING TV. NO SIGNS OF SOB OR DISTRESS, NO C/O PAIN. IV IN LFA IN PLACE WITH IVF INFUSING, TOLERATING WELL. ALL CURRENT NEEDS ATTENDED TO. BED LOW, LOCKED UPPER RAILS UP AND CALL LIGHT WITHIN REACH. WILL CONT. TO MONITOR.
[2018-12-30] MEDS: PIPERACILLIN /TAZOBACTAM 3.375 G in IV D5W 50 ML IV SCH (19:48)
[2018-12-30 20:10] VITALS: BP 144/74
[2018-12-30] MEDS: TAMSULOSIN 0.4 MG CAP.SR.24H PO SCH (21:01)
[2018-12-31] MEDS: PIPERACILLIN /TAZOBACTAM 3.375 G in IV D5W 50 ML IV SCH ×2 (01:49→08:27)
[2018-12-31] MEDS: IV NS 0.9% 1,000 ML IV PRN (01:49)
[2018-12-31] MEDS: MORPHINE SULFATE INJ 4 MG/ML DISP.SYRIN IV PRN (05:40)
--- NOTE | 2018-12-31 05:40 | NUR ---
MS RN NOTE MORPHINE 4 MG GIVEN IV FOR ABD PAIN 02/11. WILL CONT. TO MONITOR.
--- NOTE | 2018-12-31 06:30 | NUR ---
MS RN NOTE PT IN STABLE CONDITION A&O X4, ABLE TO MAKE NEEDS KNOWN. CURRENTLY RESTING IN BED. NO SIGNS OF SOB OR DISTRESS, NO C/O PAIN. IV IN LFA IN PLACE WITH IVF INFUSING, TOLERATING WELL. ALL CURRENT NEEDS ATTENDED TO. BED LOW, LOCKED UPPER RAILS UP AND CALL LIGHT WITHIN REACH. WILL CONT. TO MONITOR AND ENDORSE TO NEXT SHIFT FOR NETTA.
--- NOTE | 2018-12-31 07:06 | NUR ---
MS RN NOTES PATIENT IN BED ALERT ORIENTED X 4. NO ACUTE DISTRESS NOTED. BREATHING UNLABORED. NO SOB NOTED. IV ACCESS PATENT AND INTACT, NO REDNESS OR SWELLING NOTED. SAFETY MEASURES IN PLACE. CALL LIGHT WITHIN REACH. WILL CONTINUE TO MONITOR ACCORDINGLY.
[2018-12-31 07:29] LABS: BASOPHILS % (AUTO) 0.3 % (0.0-2.0); EOSINOPHILS % (AUTO) 0.5 % (0.0-6.0); HEMATOCRIT 34 % (39-51); HEMOGLOBIN 11.2 g/dL (13.5-17.5); LYMPHOCYTES # (AUTO) 1.2 /CMM (0.8-4.8); LYMPHOCYTES % (AUTO) 9.2 % (20.0-44.0); MEAN CORPUSCULAR HGB CONC 33 g/dl (31.0-36.0); MEAN CORPUSCULAR VOLUME 79 fL (80-96); MONOCYTES # (AUTO) 1.4 /CMM (0.1-1.30); MONOCYTES % (AUTO) 11.3 % (2.0-12.0); NEUTROPHILS % (AUTO) 78.7 % (43.0-81.0); PLATELET COUNT (AUTO) 305 /CMM (150-450); WHITE BLOOD COUNT (AUTO) 12.7 K/uL (4.3-11.0)
[2018-12-31 07:48] LABS: CALCIUM, SERUM 8.4 mg/dL (8.5-10.1); CREATININE 1.1 mg/dL (0.6-1.3); MAGNESIUM 2.1 mg/dL (1.8-2.4); POTASSIUM 3.9 mmol/L (3.5-5.1)
[2018-12-31 08:00] VITALS: BP 125/70
[2018-12-31] MEDS: PANTOPRAZOLE 40 MG TABLET.DR PO SCH (08:26)
[2018-12-31] MEDS: DOCUSATE SODIUM 100 MG CAPSULE PO SCH (08:26)
[2018-12-31] MEDS: NICOTINE PATCH (21MG) 21 MG PATCH.TD24 TD SCH (08:26)
[2018-12-31] MEDS ORDERED: AMOX-430 PO (10:57)
--- NOTE | 2018-12-31 14:30 | NUR ---
MS PHD INTERNSHIP NOTES PATIENT DISCHARGED HOME WITH STABLE VITAL SIGNS, NO ACUTE DISTRESS NOTED, ALERT ORIENTED X 4. IV ACCESS REMOVED, NO REDNESS, NO BLEEDING, NO SWELLING NOTED. DISCHARGE INSTRUCTIONS GIVEN TO THE PATIENT INCLUDING NEW PRESCRIPTION, VERBALIZED UNDERSTANDING. DUE MEDICATIONS GIVEN. NEEDS ATTENDED AND ANTICIPATED. ALL BELONGINGS ACCOUNTED FOR. ASSISTED TO THE LOBBY, PICKED UP VIA PRIVATE CAR IN STABLE CONDITION.
== END 2018-12-31 14:15 | disposition home or self-care (01) | DRG 248 ==
LOC: ER 22:56 → MED 12-26 04:04
PROVIDERS: ADMIT Nurse Practitioner Acute Care; ATTEND Nurse Practitioner Acute Care
PROC: 0J973ZZ Drainage of Back Subcutaneous Tissue and Fascia, Percutaneous Approach (ICD-10-PCS; principal; 2018-12-29)
DX: A04.9 Bacterial intestinal infection, unspecified (principal); E44.1 Mild protein-calorie malnutrition; E87.1 Hypo-osmolality and hyponatremia; L02.212 Cutaneous abscess of back [any part, except buttock and flank]; D63.8 Anemia in other chronic diseases classified elsewhere; K57.30 Diverticulosis of large intestine without perforation or abscess without bleeding; K59.00 Constipation, unspecified; N40.0 Benign prostatic hyperplasia without lower urinary tract symptoms; E87.6 Hypokalemia; D50.9 Iron deficiency anemia, unspecified; D72.829 Elevated white blood cell count, unspecified; R73.9 Hyperglycemia, unspecified; Z68.1 Body mass index [BMI] 19.9 or less, adult
CPT/HCPCS: 36415; 71045-TC; 80048-TC; 80061-TC; 80076-TC; 82728-TC; 83540-TC; 83690-TC; 83735-TC; 84100-TC; 85025-TC; 85610-TC; 85730-TC; 87070-TC; 87081-TC; 87186-TC; A4216; G0378; J0744; J1100; J2270; J2405; J2543; J3475; J3490; J7030; J7040; J7050; J7060; Q9963; Q9967

== ENCOUNTER 2019-01-30 18:37 | Emergency (ER) | payer MEDICARE, OTHER ==
[~2019-01-30] VITALS: Ht 172.7 cm; Wt 54.4 kg
[2019-01-30 18:50] VITALS: BP 109/61
== END 2019-01-30 19:20 | disposition home or self-care (01) ==
LOC: ER 18:37
DX: I80.8 Phlebitis and thrombophlebitis of other sites (principal); Z98.890 Other specified postprocedural states; Z60.2 Problems related to living alone

== ENCOUNTER 2019-05-05 03:06 | Inpatient (IN) | payer MEDICARE, OTHER ==
[~2019-05-05] VITALS: Ht 172.7 cm; Wt 54.0 kg
--- NOTE | 2019-05-05 03:20 | NUR ---
bibs for c/o lower abd pain x 3 days. - diarrhea. - constipation. - n/v. - hematuria or dysuria. + hx of colitis and diverticolitis.
[2019-05-05] MEDS ORDERED: ONDANSETRON HCL/PF 4 MG/2 ML VIAL ONE (03:28)
[2019-05-05] MEDS ORDERED: MORPHINE SULFATE INJ 4 MG/ML DISP.SYRIN ONE (03:28)
[2019-05-05] MEDS ORDERED: IV NS 0.9% 1,000 ML BAG IV ONE (03:30)
[2019-05-05] MEDS ORDERED: MORPHINE SULFATE INJ 2 MG/ML DISP.SYRIN IV ONE (03:30)
[2019-05-05] MEDS ORDERED: ONDANSETRON HCL/PF 4 MG/2 ML VIAL IVP ONE (03:30)
[2019-05-05 03:42] LABS: BASOPHILS % (AUTO) 0.3 % (0.0-2.0); EOSINOPHILS % (AUTO) 0.7 % (0.0-6.0); HEMATOCRIT 41 % (39-51); HEMOGLOBIN 13.6 g/dL (13.5-17.5); LYMPHOCYTES # (AUTO) 1.8 /CMM (0.8-4.8); LYMPHOCYTES % (AUTO) 17.2 % (20.0-44.0); MEAN CORPUSCULAR HGB CONC 33 g/dl (31.0-36.0); MEAN CORPUSCULAR VOLUME 80 fL (80-96); MONOCYTES # (AUTO) 0.8 /CMM (0.1-1.30); MONOCYTES % (AUTO) 7.9 % (2.0-12.0); NEUTROPHILS # (AUTO) 7.6 /CMM (1.8-8.9); NEUTROPHILS % (AUTO) 73.9 % (43.0-81.0); PLATELET COUNT (AUTO) 289 /CMM (150-450); RED BLOOD CELL COUNT(AUTO) 5.11 MIL/uL (4.5-6.0); WHITE BLOOD COUNT (AUTO) 10.3 K/uL (4.3-11.0)
[2019-05-05 03:54] LABS: ALANINE AMINOTRANSFERASE 20 U/L (12-78); ALBUMIN 3.3 g/dL (3.4-5.0); ALKALINE PHOSPHATASE 55 U/L (46-116); ASPARTATE AMINOTRANSFERASE 15 U/L (15-37); BILIRUBIN,DIRECT 0.1 mg/dL (0.0-0.2); BILIRUBIN,TOTAL 0.3 mg/dL (0.2-1.0); CARBON DIOXIDE 28 mmol/L (21-32); CHLORIDE 100 mmol/L (98-107); CREATININE 1.1 mg/dL (0.6-1.3); GLUCOSE 135 mg/dL (74-106); LIPASE 110 U/L (73-393); POTASSIUM 3.6 mmol/L (3.5-5.1); SODIUM SERUM 136 mmol/L (136-145); TOTAL PROTEIN, SERUM 8.5 g/dL (6.4-8.2); UREA NITROGEN, BLOOD 12 mg/dL (7-18)
--- NOTE | 2019-05-05 03:55 | NUR ---
back from ct
[2019-05-05 04:36] LABS: APPEARANCE,URINE Clear (CLEAR); BILIRUBIN,URINE Negative (NEGATIVE); BLOOD, URINE Negative Ery/uL (NEGATIVE); COLOR,URINE Yellow (YELLOW); KETONES,URINE Trace (NEGATIVE); LEUKOCYTE ESTERASE ,URINE Negative (NEGATIVE); NITRITE, URINE Negative (NEGATIVE); PH,URINE 5.5 (5.0-8.0); PROTEIN,URINE Negative (NEGATIVE); UGLUCOSE Negative (NEGATIVE); UROBILINOGEN,URINE 0.2 EU/dL (0.2)
[2019-05-05] MEDS ORDERED: CIPROFLOXACIN IV RTU 200 ML IV ONE (04:45)
[2019-05-05] MEDS ORDERED: METRONIDAZOLE 500MG/ NS 100ML 100 ML IV ONE (04:45)
--- NOTE | 2019-05-05 04:57 | NUR ---
CALLED HOUSE SUP FOR MED SURG BED.
[2019-05-05] MEDS ORDERED: METRONIDAZOLE 500MG/ NS 100ML 500 MG in PREMIX 1 EA IV SCH (05:00)
[2019-05-05] MEDS ORDERED: CIPROFLOXACIN IV RTU 400 MG in PREMIX 1 EA IV SCH ×2 (05:00→21:00)
[2019-05-05 05:20] LABS: BACTERIA,URINE Few /HPF (None Seen); MUCUS,URINE Moderate /LPF (None Seen); RBC,URINE 0-2 /HPF (0-2); SQUAMOUS EPITHELIAL CELL,UR Rare /HPF (None Seen)
--- NOTE | 2019-05-05 05:29 | NUR ---
PER HOUSE SUP, NO NURSE AVAILABLE TO ADMIT PT
[2019-05-05] MEDS ORDERED: ONDANSETRON HCL/PF 4 MG/2 ML VIAL IVP PRN (05:30)
[2019-05-05] MEDS ORDERED: ACETAMINOPHEN 325 MG TABLET PO PRN (05:30)
--- NOTE | 2019-05-05 06:04 | NUR ---
ROOM ASSIGNMENT 320-1. PER HOUSE SOUP, GIVE REPORT AT 6:30AM
--- NOTE | 2019-05-05 06:25 | NUR ---
REPORT GIVEN TO NARCISO ON THIRD FLOOR
--- NOTE | 2019-05-05 06:36 | NUR ---
PT WAS TRANSFERRED TO 320-2 IN STABLE CONDITION UNDER ACLS
--- NOTE | 2019-05-05 06:45 | NUR ---
MS DEPARTMENT MGR NOTE RECEIVED PATIENT VIA GURNEY. PATIENT AMBULATED TO BED, GAIT IS STEADY. A/O X4. TOLERATING ROOM AIR. RESPIRATIONS ARE EVEN AND UNLABORED. NO S/S SOB. DENIES PAIN AT THIS TIME. IN NO APPARENT DISTRESS. IV ACCESS IN LAC #18 PATENT AND RUNNING CIPRO. VS STABLE: BP 154/82 HR 69 RR18 T 98.8 O2 100%. BELONGINGS LIST COMPLETED. MADE PATIENT COMFORTABLE. BED IS LOW AND LOCKED, HOB FLAT, SIDE RAILS UP X2. CALL LIGHT WITHIN REACH. WILL ENDORSE TO NEXT SHIFT FOR NETTA.
[2019-05-05 06:48] VITALS: BP 154/82
--- NOTE | 2019-05-05 07:10 | NUR ---
INSURANCE UNDERWRITER NOTES PATIENT IN BED ALERT ORIENTED X 4. NO ACUTE DISTRESS NOTED. BREATHING UNLABORED. NO SOB NOTED. IV ACCESS PATENT AND INTACT ,NO REDNESS, NO SWELLING NOTED. SAFETY MEASURES IN PLACE. CALL LIGHT WITHIN REACH. WILL CONTINUE TO MONITOR ACCORDINGLY
[2019-05-05] MEDS: IV NS 0.9% 1,000 ML IV PRN ×2 (07:20→23:13)
[2019-05-05 08:00] VITALS: BP 116/88
[2019-05-05] MEDS: PANTOPRAZOLE 40 MG VIAL IV SCH (08:59)
[2019-05-05] MEDS: MORPHINE SULFATE INJ 2 MG/ML DISP.SYRIN IV PRN ×2 (10:57→16:56)
[2019-05-05] MEDS: METRONIDAZOLE 500MG/ NS 100ML 500 MG in PREMIX 1 EA IV SCH ×2 (12:49→18:16)
[2019-05-05 16:00] VITALS: BP 142/74
--- NOTE | 2019-05-05 19:00 | NUR ---
MARKETING DEVELOPMENT MANAGER NOTES PATIENT IN BED ALERT ORIENTED X 4. NO ACUTE DISTRESS NOTED. BREATHING UNLABORED. NO SOB NOTED. IV ACCESS PATENT AND INTACT ,NO REDNESS, NO SWELLING NOTED. NEEDS ATTENDED AND ANTICIPATED. SAFETY MEASURES IN PLACE. CALL LIGHT WITHIN REACH. WILL ENDORSE TO NIGHT NURSE FOR CONTINUITY OF CARE.
--- NOTE | 2019-05-05 19:49 | NUR ---
Met with patient, he lives alone at home. He is ambulatory and independent with adl's. Has no DME or homehealth reported. Denies dc planning needs at this time. Addendum: 05/05/19 at 1950 by GRICELDA PIRES RN Amended: Links added.
[2019-05-05 20:00] VITALS: BP 148/72
[2019-05-05 20:01] VITALS: BP 148/72
--- NOTE | 2019-05-05 20:04 | NUR ---
recieved in bed lying on right side arouses when name spoken. no verbalized c/o.
[2019-05-05] MEDS: PIPERACILLIN /TAZOBACTAM 3.375 G in IV D5W 50 ML IV SCH (21:00)
[2019-05-06] MEDS: PIPERACILLIN /TAZOBACTAM 3.375 G in IV D5W 50 ML IV SCH ×2 (03:08→11:03)
--- NOTE | 2019-05-06 06:41 | NUR ---
in bed. during the night noted he changed his position thru the night drom side to side. voided in the urinal dark beatrice in color. no pain c/o thru the night. He did c/o of being costiopated will endorse this to the AM shift. He has active BS but states not passing flatus.``
[2019-05-06 08:00] VITALS: BP 137/78
[2019-05-06 08:04] LABS: BASOPHILS % (AUTO) 0.3 % (0.0-2.0); EOSINOPHILS % (AUTO) 0.2 % (0.0-6.0); HEMATOCRIT 37 % (39-51); HEMOGLOBIN 12.3 g/dL (13.5-17.5); LYMPHOCYTES # (AUTO) 1.7 /CMM (0.8-4.8); LYMPHOCYTES % (AUTO) 15.8 % (20.0-44.0); MEAN CORPUSCULAR HGB CONC 33 g/dl (31.0-36.0); MEAN CORPUSCULAR VOLUME 79 fL (80-96); MONOCYTES % (AUTO) 9.1 % (2.0-12.0); NEUTROPHILS # (AUTO) 8.2 /CMM (1.8-8.9); NEUTROPHILS % (AUTO) 74.6 % (43.0-81.0); PLATELET COUNT (AUTO) 294 /CMM (150-450); RED BLOOD CELL COUNT(AUTO) 4.65 MIL/uL (4.5-6.0); WHITE BLOOD COUNT (AUTO) 11.1 K/uL (4.3-11.0)
[2019-05-06 08:10] LABS: CALCIUM, SERUM 8.8 mg/dL (8.5-10.1); MAGNESIUM 1.6 mg/dL (1.8-2.4); PHOSPHORUS 2.2 mg/dL (2.5-4.9); POTASSIUM 3.8 mmol/L (3.5-5.1)
[2019-05-06] MEDS: PANTOPRAZOLE 40 MG VIAL IV SCH (11:02)
[2019-05-06] MEDS: Magnesium 1GM/D5W 100ML PREMIX 100 ML IV SCH ×2 (11:03→11:48)
[2019-05-06] MEDS ORDERED: Sodium Phosphate 7.5 MMOL in IV D5W 100 ML IV ONE (12:00)
[2019-05-06] MEDS: PIPERACILLIN /TAZOBACTAM 3.375 G in IV D5W 100 ML IV SCH ×2 (15:00→22:53)
[2019-05-06 16:01] VITALS: BP 157/86
--- NOTE | 2019-05-06 19:30 | NUR ---
MS RN OPENING NOTES RECEIVED PATIENT FROM MORNING SHIFT, ALERT AND ORIENTED X 4. VERBALLY RESPONSIVE AND ABLE TO FOLLOW DIRECTIONS. BREATHING REGULAR AND UNLABORED ON ROOM AIR. LEFT AC IV LINE G20 INTACT AND PATENT, INFUSING WELL WITH NO BLEEDING OR S/S OF INFECTION/INFILTRATION NOTED. ON NPO INCLUDING MEDICATIONS FOR SURGERY TOMORROW. BOWEL AND BLADDER CONTINENT WITH MINIMAL AMOUNT OF CLEAR YELLOW URINE SEEN ON URINAL, BRP. NO COMPLAINTS OF PAIN/DISCOMFORT REPORTED OF THE TIME. BED LOW AND LOCKED ON SEMI FOWLERS POSITION. CALL LIGHT IN REACH. WILL CONTINUE TO MONITOR.
--- NOTE | 2019-05-06 19:50 | NUR ---
MS MEADE NO Addendum: 05/06/19 at 2030 by RITCHIE LESLIE RN MS MEADE NOTES& PATIENT VERBALIZED GETTING IRRITATED OF HAVING DRIBBLING URINE. PER HIM HE'S PEEING EVERY 10MINS WITH SO LITTLE OUTPUT. REQUESTED IF HE CAN TAKE HIS FLOMAX 04.MG TONIGHT. OVIDIO CASILLAS MADE AWARE PATIENT IS ON NPO INCLUDING MEDS WITH ORDERS TO GIVEN FLOMAX 04.MG TONIGHT ONLY NOTED AND CARRIED OUT. WILL CONTINUE TO MONITOR.
[2019-05-06 20:00] VITALS: BP 153/76
[2019-05-06] MEDS ORDERED: TAMSULOSIN 0.4 MG CAP.SR.24H PO ONE (21:00)
[2019-05-06 22:00] VITALS: BP 153/76
[2019-05-07] MEDS: MORPHINE SULFATE INJ 2 MG/ML DISP.SYRIN IV PRN (01:02)
--- NOTE | 2019-05-07 01:10 | NUR ---
MS RN NOTES COMPLAINED OF 8/10 ABDOMINAL PAIN, MORPHINE 4MG GIVEN VIA IV PUSH. VITAL SIGNS WNL. NON-PHARMACOLOGICAL INTERVENTIONS PROVIDED. WILL CONTINUE TO MONITOR.
[2019-05-07] MEDS: IV NS 0.9% 1,000 ML IV PRN (01:45)
[2019-05-07] MEDS: PIPERACILLIN /TAZOBACTAM 3.375 G in IV D5W 100 ML IV SCH ×3 (06:10→22:16)
--- NOTE | 2019-05-07 06:25 | NUR ---
MS RN CLOSING NOTES PATIENT IN BED, ALERT AND ORIENTED X 4. VERBALLY RESPONSIVE AND ABLE TO FOLLOW DIRECTIONS. BREATHING REGULAR AND UNLABORED ON ROOM AIR. LEFT AC IV LINE G20 INTACT AND PATENT, INFUSING WELL WITH NO BLEEDING OR S/S OF INFECTION/INFILTRATION NOTED. MAINTAINED ON NPO INCLUDING MEDS. BOWEL AND BLADDER CONTINENT WITH 500ML OF CLEAR YELLOW URINE ON URINAL AND HAD A SMALL FORMED BOWEL MOVEMENT, BRP. NO COMPLAINTS OF PAIN/DISCOMFORT REPORTED OF THE TIME. BED LOW AND LOCKED ON SEMI FOWLERS POSITION. CALL LIGHT IN REACH. WILL ENDORSE TO MORNING SHIFT FOR NETTA.
--- NOTE | 2019-05-07 07:13 | NUR ---
RN OPENING NOTE PT WAS RECEIVED IN BED AT LOWEST AND LOCKED POSITION WITH SIDE RAILS UP X2, A/O X3 BREATHING EVEN AND UNLABORED ON RA, NO S/S OF ANY DISTRESS OR PAIN AT THIS TIME, IV IS PATENT AND INTACT, CURRENTLY NPO AWAITING SURGICAL DRAINAGE OF ABSCESS, SAFETY PRECAUTIONS IN PLACE, CALL LIGHT IN REACH, WILL MONITOR ACCORDINGLY
[2019-05-07] MEDS ORDERED: ANESTHESIA TRAY IN PYXIS 1 EA TRAY MC ONE (07:52)
--- NOTE | 2019-05-07 07:52 | NUR ---
RN NOTE PT TAKEN DOWN TO THE OR AT THIS TIME
[2019-05-07 08:00] VITALS: BP 134/73
[2019-05-07] MEDS ORDERED: HYDROMORPHONE INJ 2 MG/ML DISP.SYRIN ONE (08:08)
[2019-05-07] MEDS: PANTOPRAZOLE 40 MG VIAL IV SCH (09:00)
--- NOTE | 2019-05-07 09:30 | NUR ---
RN NOTE PT BROUGHT BACK UP FROM OR AT THIS TIME, CURRENTLY IN STABLE CONDITION A/O X4 BREATHING EVEN AND UNLABORED ON RA, NO PAIN AT THIS TIME, WILL MONITOR ACCORDINGLY Addendum: 05/07/19 at 0937 by JALYN GOMEZ RN WRITTEN ORDER RECEIVED FOR REGULAR DIET, 1 BOTTLE OF MAG CITRATE TODAY, CBC TOMORROW IN AM, AND TO AMBULATE PT OOB TOLERATED. WILL IMPLEMENT AND CARRY OUT ACCORDINGLY
[2019-05-07] MEDS ORDERED: MAGNESIUM CITRATE 296 ML BOTTLE PO ONE (11:00)
[2019-05-07 11:42] LABS: BASOPHILS % (AUTO) 0.3 % (0.0-2.0); EOSINOPHILS % (AUTO) 0.1 % (0.0-6.0); HEMATOCRIT 39 % (39-51); LYMPHOCYTES # (AUTO) 0.9 /CMM (0.8-4.8); LYMPHOCYTES % (AUTO) 5.6 % (20.0-44.0); MEAN CORPUSCULAR HGB CONC 33 g/dl (31.0-36.0); MEAN CORPUSCULAR VOLUME 80 fL (80-96); MONOCYTES # (AUTO) 0.3 /CMM (0.1-1.30); MONOCYTES % (AUTO) 2.1 % (2.0-12.0); NEUTROPHILS # (AUTO) 14.5 /CMM (1.8-8.9); NEUTROPHILS % (AUTO) 91.9 % (43.0-81.0); PLATELET COUNT (AUTO) 332 /CMM (150-450); RED BLOOD CELL COUNT(AUTO) 4.91 MIL/uL (4.5-6.0); WHITE BLOOD COUNT (AUTO) 15.8 K/uL (4.3-11.0)
[2019-05-07 11:50] LABS: CALCIUM, SERUM 8.7 mg/dL (8.5-10.1); CREATININE 1.2 mg/dL (0.6-1.3); POTASSIUM 3.6 mmol/L (3.5-5.1)
[2019-05-07 11:54] LABS: MAGNESIUM 1.9 mg/dL (1.8-2.4); PHOSPHORUS 2.8 mg/dL (2.5-4.9)
[2019-05-07 16:00] VITALS: BP 134/75
--- NOTE | 2019-05-07 17:24 | NUR ---
RN NOTE OFFERED FOR ABD DRESSING ON SACRUM/BUTTOCK TO BE CHANGED BUT PT REFUSED STATING HE WILL JUST USE A SMALL TOWEL
--- NOTE | 2019-05-07 18:26 | NUR ---
RN CLOSING NOTE PT IN BED AT LOWEST AND LOCKED POSITION WITH SIDE RAILS UP X2, A/O X3 BREATHING EVEN AND UNLABORED WITH NODISTRESS OR PAIN AT THIS TIME, IV IS PATENT AND INTACT, SAFETY PRECAUTIONS IN PLACE, CALL LIGHT IN REACH, ALL NEEDS ATTENDED TO, WILL ENDORSE TO NIGHT RN FOR NETTA.
--- NOTE | 2019-05-07 19:20 | NUR ---
MS RN OPENING NOTES RECEIVED PATIENT FROM MORNING SHIFT, ALERT AND ORIENTED X 4. AMBULATORY, VERBALLY RESPONSIVE AND ABLE TO FOLLOW DIRECTIONS. BREATHING REGULAR AND UNLABORED ON ROOM AIR. NO IV ACCESS, TO REINSERT A NEW LINE. S/P INCISION AND DRAINAGE OF RECURRENT PRESACRAL ABSCESS WITH NO ACTIVE BLEEDING NOTED ON POST SURGICAL SITE. DRESSING INTACT AND CLEAN. BOWEL AND BLADDER CONTINENT WITH MODERATE AMOUNT OF CLEAR YELLOW URINE SEEN ON URINAL, BRP. NO COMPLAINTS OF PAIN/DISCOMFORT REPORTED OF THE TIME. BED LOW AND LOCKED ON SEMI FOWLERS POSITION. CALL LIGHT IN REACH. WILL CONTINUE TO MONITOR.
[2019-05-07 20:00] VITALS: BP 134/72
--- NOTE | 2019-05-07 20:00 | NUR ---
MS RN NOTES NEW IV LINE REINSERTED ON LEFT FOREARM USING G20 NEEDLE, GOOD BLOOD BACKFLOW NOTED. NO S/S OF INFILTRATION OR BLEEDING OBSERVED. SECURED PROPERLY. HOOKED BACK TO NS AT 75CC/HR. WILL CONTINUE TO MONITOR.
--- NOTE | 2019-05-07 21:30 | NUR ---
MS RN NOTES ASKED PATIENT IF WE CAN TAKE A PHOTO OF HIS INCISION SITE AND CHANGE HIS WOUND DRESSING, REFUSED SAID HE'S THE ONE WHO'S GOING TO PUT THE NEW DRESSING. RISK AND BENEFITS EXPLAINED. WILL CONTINUE TO MONITOR.
[2019-05-07 22:00] VITALS: BP 134/72
[2019-05-07] MEDS ORDERED: TAMSULOSIN 0.4 MG CAP.SR.24H PO SCH (22:00)
[2019-05-08] MEDS: PIPERACILLIN /TAZOBACTAM 3.375 G in IV D5W 100 ML IV SCH ×2 (06:01→15:00)
--- NOTE | 2019-05-08 06:23 | NUR ---
MS RN CLOSING NOTES PATIENT IN BED, ALERT AND ORIENTED X 4. VERBALLY RESPONSIVE AND ABLE TO FOLLOW DIRECTIONS. BREATHING REGULAR AND UNLABORED ON ROOM AIR. LEFT FOREARM IV LINE G20 INTACT AND PATENT, INFUSING WELL WITH NO BLEEDING OR S/S OF INFECTION/INFILTRATION NOTED. ON REGULAR DIET, TOLERATING WELL WITH NO COMPLAINTS OF NAUSEA/VOMITING REPORTED. BOWEL AND BLADDER CONTINENT WITH 600ML OF CLEAR MARY URINE ON URINAL, BRP. NO COMPLAINTS OF PAIN/DISCOMFORT REPORTED WITHIN THE SHIFT. BED LOW AND LOCKED ON SEMI FOWLERS POSITION. CALL LIGHT IN REACH. WILL ENDORSE TO MORNING SHIFT FOR NETTA.
[2019-05-08] MEDS: IV NS 0.9% 1,000 ML IV PRN (06:44)
[2019-05-08 06:56] LABS: BASOPHILS % (AUTO) 0.2 % (0.0-2.0); EOSINOPHILS % (AUTO) 0.1 % (0.0-6.0); HEMATOCRIT 35 % (39-51); HEMOGLOBIN 11.4 g/dL (13.5-17.5); LYMPHOCYTES # (AUTO) 2.3 /CMM (0.8-4.8); LYMPHOCYTES % (AUTO) 18.4 % (20.0-44.0); MEAN CORPUSCULAR HGB CONC 32 g/dl (31.0-36.0); MEAN CORPUSCULAR VOLUME 80 fL (80-96); MONOCYTES # (AUTO) 1.1 /CMM (0.1-1.30); MONOCYTES % (AUTO) 8.6 % (2.0-12.0); NEUTROPHILS # (AUTO) 9.3 /CMM (1.8-8.9); NEUTROPHILS % (AUTO) 72.7 % (43.0-81.0); PLATELET COUNT (AUTO) 303 /CMM (150-450); RED BLOOD CELL COUNT(AUTO) 4.41 MIL/uL (4.5-6.0); WHITE BLOOD COUNT (AUTO) 12.7 K/uL (4.3-11.0)
[2019-05-08 07:42] LABS: CALCIUM, SERUM 8.6 mg/dL (8.5-10.1); PHOSPHORUS 2.6 mg/dL (2.5-4.9); POTASSIUM 4.2 mmol/L (3.5-5.1)
--- NOTE | 2019-05-08 08:00 | NUR ---
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 pt wants to go home today as stated. awaiting for md order and eval. no c/o pain or any discomfort. vss. afebrile. 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 instructed to call for assistance. will continue to monitor.
[2019-05-08 08:21] VITALS: BP 119/65
[2019-05-08] MEDS: PANTOPRAZOLE 40 MG VIAL IV SCH (09:02)
--- NOTE | 2019-05-08 10:15 | NUR ---
m/s melt house supervisor: notes f/u made to dr. collado re: wound tx on his rectum/presacral with order case aide to arrange for follow up with a dedicated colorectal surgeon and no wound tx due to the wound is deep in his rectum, and his body will take care of it without any special treatment as stated. Addendum: 05/08/19 at 1020 by GRANT PRATT LVN orders read back and carried out and acknowledged. Addendum: 05/08/19 at 1531 by GRANT PRATT LVN okay to d'c home with po antibiotic per dr. collado.
--- NOTE | 2019-05-08 11:00 | NUR ---
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 awaiting for dr. webster for discharge order and prescription.
--- NOTE | 2019-05-08 13:00 | NUR ---
m/s manager safe: notes resting comfortable in bed with no distress noted. for d'c planning. will continue to monitor.
--- NOTE | 2019-05-08 14:00 | NUR ---
m/s merchandise pickup/receiving associate: notes keyla (id) notified and made aware re: pt wants to go home and needs po antibiotic recommendation. culture still pending. per keyla, pt can have augmentin 875mg po bid. will inform hospitalist re: id recommendation.
--- NOTE | 2019-05-08 15:28 | NUR ---
m/s clinical services manager: notes pt refused ivpb zosyn, pt still wants to go home, will take po antibiotic once prescribed as stated. still awaiting for dr. webster. instructed to call for assistance. will continue to monitor.
--- NOTE | 2019-05-08 16:00 | NUR ---
m/s lawn mower operator: notes received discharge home order from dr. webster per cn with prescriptions.
--- NOTE | 2019-05-08 16:15 | NUR ---
m/s film painter: notes discharge instructions with prescriptions given to pt and verbalized understanding. h/l removed with tip intact.
--- NOTE | 2019-05-08 16:25 | NUR ---
m/s top collar baster: discharged discharge home in stable condition with all valuables and d'c papers via own private car.
[2019-05-08 16:26] VITALS: BP 136/72
[2019-05-08] MEDS ORDERED: AMOX-430 PO (22:39)
== END 2019-05-08 16:20 | disposition home or self-care (01) | DRG 391 ==
LOC: ER 03:06 → MED 06:10
PROVIDERS: ADMIT Registered Nurse; ATTEND Nurse Practitioner Acute Care
DX: K57.32 Diverticulitis of large intestine without perforation or abscess without bleeding (principal); K65.9 Peritonitis, unspecified; N39.0 Urinary tract infection, site not specified; K59.09 Other constipation; N40.0 Benign prostatic hyperplasia without lower urinary tract symptoms; Z98.890 Other specified postprocedural states; Z79.899 Other long term (current) drug therapy; E88.09 Other disorders of plasma-protein metabolism, not elsewhere classified; N52.9 Male erectile dysfunction, unspecified; Z72.0 Tobacco use; K60.3 Anal fistula
CPT/HCPCS: 36415; 80048-TC; 80061-TC; 80076-TC; 81000-TC; 83690-TC; 83735-TC; 84100-TC; 84484-TC; 85025-TC; 85610-TC; 85730-TC; 87070-TC; 87081-TC; 87186-TC; A4216; A4217; A6253; A9563; C9113; G0378; J0744; J1100; J1170; J1200; J2270; J2405; J2543; J2704; J3475; J3490; J7030; J7060

== ENCOUNTER 2019-05-09 14:39 | Outpatient (CLI) | payer MEDICARE, OTHER ==
[2019-05-09 14:45] VITALS: BP 98/61
== END 2019-05-09 23:59 | disposition home or self-care (01) ==
LOC: MSC 14:39
PROVIDERS: ATTEND Internal Medicine
DX: K57.92 Diverticulitis of intestine, part unspecified, without perforation or abscess without bleeding (principal); K59.09 Other constipation; N40.0 Benign prostatic hyperplasia without lower urinary tract symptoms; F17.200 Nicotine dependence, unspecified, uncomplicated

== ENCOUNTER 2019-07-13 00:30 | Inpatient (IN) | payer MEDICARE, OTHER ==
[~2019-07-13] VITALS: Ht 170.2 cm; Wt 54.4 kg
--- NOTE | 2019-07-13 01:10 | NUR ---
PT BB RA FROM HOME FOR PELVIC PAIN. NO IMMEDIATTE SIGNS OF DISTRESS NOTED. PT VITAL SIGNS STABLE. PT TO ER BED 12. PT CHANGED INTO GOWN AND CONNECTED TO MONITOR. WILL CONT TO MONITOR PT./
[2019-07-13 01:18] LABS: BASOPHILS # (AUTO) 0.1 /CMM (0.0-0.2); BASOPHILS % (AUTO) 0.5 % (0.0-2.0); EOSINOPHILS % (AUTO) 0.5 % (0.0-6.0); HEMATOCRIT 40 % (39-51); LYMPHOCYTES # (AUTO) 1.8 /CMM (0.8-4.8); LYMPHOCYTES % (AUTO) 15.9 % (20.0-44.0); MEAN CORPUSCULAR HGB CONC 32 g/dl (31.0-36.0); MEAN CORPUSCULAR VOLUME 80 fL (80-96); MONOCYTES # (AUTO) 0.9 /CMM (0.1-1.30); MONOCYTES % (AUTO) 7.7 % (2.0-12.0); NEUTROPHILS # (AUTO) 8.7 /CMM (1.8-8.9); NEUTROPHILS % (AUTO) 75.4 % (43.0-81.0); PLATELET COUNT (AUTO) 342 /CMM (150-450); RED BLOOD CELL COUNT(AUTO) 5.02 MIL/uL (4.5-6.0); WHITE BLOOD COUNT (AUTO) 11.5 K/uL (4.3-11.0)
[2019-07-13] MEDS ORDERED: ONDANSETRON HCL/PF 4 MG/2 ML VIAL ONE (01:18)
[2019-07-13] MEDS ORDERED: MORPHINE SULFATE INJ 4 MG/ML DISP.SYRIN ONE (01:18)
[2019-07-13] MEDS ORDERED: ONDANSETRON HCL/PF 4 MG/2 ML VIAL IVP ONE (01:30)
[2019-07-13] MEDS ORDERED: IV NS 0.9% 1,000 ML BAG IV ONE (01:30)
[2019-07-13] MEDS ORDERED: MORPHINE SULFATE INJ 2 MG/ML DISP.SYRIN IV ONE (01:30)
[2019-07-13 01:34] LABS: CALCIUM, SERUM 9.6 mg/dL (8.5-10.1); CREATININE 1.1 mg/dL (0.6-1.3); POTASSIUM 3.9 mmol/L (3.5-5.1)
[2019-07-13] MEDS ORDERED: HYDROCODONE/APAP 5/325MG 1 EACH TABLET PO PRN (03:00)
[2019-07-13] MEDS ORDERED: MAG HYDROX/AL HYDROX/SIMETH 30 ML UDC PO PRN (03:00)
[2019-07-13] MEDS ORDERED: ZOLPIDEM TARTRATE 5 MG TABLET PO PRN (03:00)
[2019-07-13] MEDS ORDERED: ACETAMINOPHEN 325 MG TABLET PO PRN (03:00)
[2019-07-13] MEDS ORDERED: ONDANSETRON HCL/PF 4 MG/2 ML VIAL IVP PRN (03:00)
[2019-07-13] MEDS ORDERED: Z GUARD REMEDY 2 OZ OINT TP PRN (03:00)
--- NOTE | 2019-07-13 03:27 | NUR ---
REPORT GIVEN TO ROCKY MEADE FOR CONTINUATION OF CARE.
--- NOTE | 2019-07-13 03:40 | NUR ---
PT TRANSFERED TO [facility].
[2019-07-13 03:50] VITALS: BP 164/74
--- NOTE | 2019-07-13 03:50 | NUR ---
MS CHIEF UNIT FORESTER NOTES PATIENT ARRIVED FROM ER AT 0346 VIA WHEELCHAIR ACCOMPANIED BY ER STAFF. PATIENT IS A/O X4, ABLE TO MAKE NEEDS KNOWN AND ABLE TO AMBULATE WITH STEADY GAIT. STABLE ON RA BREATHING EVEN, UNLABORED, AND NO SOB NOTED. NO SIGNS OF ACUTE DISTRESS. VITAL SIGNS TAKEN. COMPLAINTS OF PAIN AND DISCOMFORT ON ABDOMINAL AREA. IV LOCATED ON R FA #20 PATENT AND INTACT. PATIENT ORIENTED TO ROOM AND STAFF. ALL BELONGINGS ACCOUNTED FOR. SAFETY PRECAUTIONS IN PLACE WITH BED IN LOWEST POSITION, BREAKS ON, SIDE RAILS UP X2, AND CALL LIGHT WITHIN REACH. WILL CONTINUE TO MONITOR.
[2019-07-13] MEDS: IV NS 0.9% 1,000 ML IV PRN ×2 (03:57→20:15)
[2019-07-13] MEDS ORDERED: PIPERACILLIN /TAZOBACTAM 2.25 G VIAL IV ONE (03:59)
[2019-07-13 04:00] VITALS: BP 164/74
[2019-07-13] MEDS ORDERED: PIPERACILLIN /TAZOBACTAM 4.5 G in IV D5W 50 ML IV ONE (04:00)
[2019-07-13] MEDS: MORPHINE SULFATE INJ 2 MG/ML DISP.SYRIN IV PRN ×3 (05:20→16:16)
[2019-07-13] MEDS ORDERED: PIPERACILLIN /TAZOBACTAM 4.5 G in IV D5W 50 ML IV SCH (06:00)
--- NOTE | 2019-07-13 06:38 | NUR ---
RN CLOSING NOTES PATIENT IS CURRENTLY RESTING IN BED A/O X4, AMBULATORY. STABLE ON RA WITH BREATHING EVEN AND UNLABORED, NO SOB NOTED. NO SIGNS OF ACUTE DISTRESS. NO CURRENT COMPLAINTS OF PAIN OR DISCOMFORT. IV LOCATED ON R FA #20 NS @ 75 ML/ HR. SAFETY PRECAUTIONS IN PLACE WITH BED IN LOWEST POSITION, CALL LIGHT WITHIN REACH, BREAKS ON, AND SIDE RAILS UP X2. WILL ENDORSE TO ONCOMING SHIFT ABOUT NETTA.
--- NOTE | 2019-07-13 07:15 | NUR ---
M/S RN NOTES PATIENT AWAKE ALERT AND ORIENTED X4, NO RESPIRATORY DISTRESS, NO C/O PAIN AT THIS TIME. PATIENT ON IV NS INFUSING AT 75ML/HR, INTACT AND PATENT. PATIENT'S NEEDS ATTENDED, BED ON LOWEST LOCKED POSITION, CALL LIGHT WITHIN REACH. WILL CONTINUE TO MONITOR.
[2019-07-13 08:00] VITALS: BP 138/76
[2019-07-13] MEDS: PIPERACILLIN /TAZOBACTAM 3.375 G in IV D5W 100 ML IV SCH ×2 (09:24→18:00)
--- NOTE | 2019-07-13 14:35 | NUR ---
M/S RN NOTES CHARGE NURSE, ADAM NOTIFIED DR. VILLANUEVA THAT PATIENT NEED TO BE SEEN, AWAITING FOR REPLY.
[2019-07-13 16:00] VITALS: BP 155/78
--- NOTE | 2019-07-13 19:30 | NUR ---
M/S RN NOTES PATIENT AWAKE IN BED, NO RESPIRATORY DISTRESS, NO C/O PAIN AT THIS TIME. SKIN WARM TO TOUCH. IV ACCESS SITE INTACT AND PATENT. PATIENT'S NEEDS ATTENDED. BED ON LOWEST LOCKED POSITION, CALL LIGHT WITHIN REACH. WILL ENDORSE TO ONCOMING NURSE.
[2019-07-13 20:00] VITALS: BP 159/74
--- NOTE | 2019-07-13 20:00 | NUR ---
RN NOTES RECEIVED PT. AWAKE ON BED, A/OX4, DENIES PAIN NO SOB, CALL LIGHT WITHIN REACH, [id number], CONTINUE TO MONITOR
--- NOTE | 2019-07-13 22:30 | NUR ---
RN NOTES SPOKE TO MARINO LEAVITT-SUPERVISOR TWISTING DEPARTMENT REGARDING PATIENT HOME MEDICATION FLOMAX 0.4MG PO... MARINO LEAVITT ORDERED TO CONTINUE FLOMAX 0.4MG PO, ORDER NOTED AND CARRIED OUT
[2019-07-13] MEDS: TAMSULOSIN 0.4 MG CAP.SR.24H PO SCH (22:46)
[2019-07-13 22:50] VITALS: BP 159/74
[2019-07-14] MEDS: MORPHINE SULFATE INJ 2 MG/ML DISP.SYRIN IV PRN ×6 (00:24→21:38)
--- NOTE | 2019-07-14 00:45 | NUR ---
RN NOTES COMPLAINED OF LOWER BACK PAIN- MORPHINE 2 MG IV GIVEN ORDERED, V/S STABLE
[2019-07-14] MEDS: PIPERACILLIN /TAZOBACTAM 3.375 G in IV D5W 100 ML IV SCH ×3 (01:36→17:47)
--- NOTE | 2019-07-14 06:00 | NUR ---
RN NOTES COMPLAINED OF LOWER BACK QUADRANT PAIN- MORPHINE 2 MG IV GIVEN ORDERED, V/S STABLE
--- NOTE | 2019-07-14 06:37 | NUR ---
RN NOTES PT. IS SLEEPING BUT AROUSABLE, NOT IN DISTRESS, NO PAIN NOTED, PT. NEEDS ATTENDED
[2019-07-14 07:08] LABS: BASOPHILS % (AUTO) 0.3 % (0.0-2.0); EOSINOPHILS % (AUTO) 0.4 % (0.0-6.0); HEMATOCRIT 37 % (39-51); LYMPHOCYTES # (AUTO) 1.7 /CMM (0.8-4.8); LYMPHOCYTES % (AUTO) 14.7 % (20.0-44.0); MEAN CORPUSCULAR HGB CONC 32 g/dl (31.0-36.0); MEAN CORPUSCULAR VOLUME 79 fL (80-96); MONOCYTES # (AUTO) 0.9 /CMM (0.1-1.30); NEUTROPHILS # (AUTO) 9.1 /CMM (1.8-8.9); NEUTROPHILS % (AUTO) 76.6 % (43.0-81.0); PLATELET COUNT (AUTO) 330 /CMM (150-450); RED BLOOD CELL COUNT(AUTO) 4.67 MIL/uL (4.5-6.0); WHITE BLOOD COUNT (AUTO) 11.8 K/uL (4.3-11.0)
[2019-07-14 07:11] LABS: CALCIUM, SERUM 8.9 mg/dL (8.5-10.1); CREATININE 0.9 mg/dL (0.6-1.3); MAGNESIUM 1.7 mg/dL (1.8-2.4); PHOSPHORUS 2.6 mg/dL (2.5-4.9); POTASSIUM 3.7 mmol/L (3.5-5.1)
[2019-07-14 08:00] VITALS: BP 138/90
[2019-07-14] MEDS: Magnesium 1GM/D5W 100ML PREMIX 100 ML IV SCH ×2 (08:33→09:49)
[2019-07-14 16:00] VITALS: BP 159/80
--- NOTE | 2019-07-14 19:15 | NUR ---
MS/RN OPENING NOTES: RECEIVED PATIENT AWAKE ALERT AND ORIENTED X4, VERBALLY RESPONSIVE AND ABLE TO MAKE NEEDS KNOWN. NO SOB NOTED, NO RESPIRATORY DISTRESS, NO C/O PAIN AT THIS TIME. IV ACCESS ON THE RIGHT AC #18G WITH NS INFUSING AT 75ML/HR, INTACT AND PATENT. ON NPO STATUS. STILL WAITING FOR GI CONSULT. DR VILLANUEVA PAGED 3X. STILL NO RESPONSE, SAFETY MEASURES IN PLACE, BED ON LOWEST LOCKED POSITION, CALL LIGHT WITHIN REACH. WILL CONTINUE TO MONITOR PATIENT ACCORDINGLY.
[2019-07-14 20:00] VITALS: BP 142/76
--- NOTE | 2019-07-14 21:38 | NUR ---
MS/RN NOTES: PATIENT COMPLAINED OF PAIN LEVEL OF 8 BELOW THE ABDOMEN. ADMINISTERED 2MG OF MORPHINE IV Q4HRS. VITAL SIGNS STABLE. WILL CONTINUE MONITORING PT. ACCORDINGLY.
[2019-07-14] MEDS: TAMSULOSIN 0.4 MG CAP.SR.24H PO SCH (21:39)
[2019-07-14] MEDS: IV NS 0.9% 1,000 ML IV PRN (22:54)
--- NOTE | 2019-07-15 | NUR ---
MS/RN NOTES: PATIENT REQUESTED TO RECEIVE FLOMAX FOR HIS BLADDER CONTROL. PER PT "I KNOW I'M NPO BUT PLS I NEED MY FLOMAX OR I WILL SUFFER TOMORROW." TEXTED MARINO LEAVITT, PER MARINO "OKAY TO GIVE IF PATIENT IS NOT BLOATED OR NOT IN PAIN." PATIENT GIVEN ONE TIME FLOMAX 0.4 MG CAPSULE PO. TOLERATED WELL. WILL CONTINUE MONITORING PT. ACCORDINGLY.
[2019-07-15] MEDS ORDERED: TAMSULOSIN 0.4 MG CAP.SR.24H PO ONE (00:30)
[2019-07-15] MEDS: PIPERACILLIN /TAZOBACTAM 3.375 G in IV D5W 100 ML IV SCH ×3 (01:37→17:15)
[2019-07-15] MEDS: MORPHINE SULFATE INJ 2 MG/ML DISP.SYRIN IV PRN ×6 (01:38→22:03)
--- NOTE | 2019-07-15 01:38 | NUR ---
MS/RN NOTES: PATIENT COMPLAINED OF PAIN LEVEL OF 8 BELOW THE ABDOMEN. ADMINISTERED 2MG OF MORPHINE IV Q4HRS. VITAL SIGNS STABLE. WILL CONTINUE MONITORING PT. ACCORDINGLY.
--- NOTE | 2019-07-15 05:38 | NUR ---
MS/RN NOTES: PATIENT COMPLAINED OF PAIN LEVEL OF 8 BELOW THE ABDOMEN. ADMINISTERED 2MG OF MORPHINE IV Q4HRS. VITAL SIGNS STABLE. WILL CONTINUE MONITORING PT. ACCORDINGLY.
--- NOTE | 2019-07-15 06:46 | NUR ---
MS/RN CLOSING NOTES: PATIENT IS RESTING IN BED CURRENTLY. NO SIGNIFICANT CHANGES IN CONDITION. A/OX4, VERBALLY RESPONSIVE AND ABLE TO MAKE NEEDS KNOWN. ON ROOM AIR, NO SOB NOTED, NO RESPIRATORY DISTRESS, NO C/O PAIN AT THIS TIME. IV ACCESS ON THE RIGHT AC #18G WITH NS INFUSING AT 75ML/HR, INTACT AND PATENT. STILL ON NPO STATUS. AWAITING FOR GI CONSULT, POSSIBLY IN THE AM. ALL DUE MEDS GIVEN ORDERED. KEPT PATIENT WARM AND DRY THROUGHOUT THE SHIFT. ALL NURSING NEED MET AND PROVIDED. SAFETY MEASURES KEPT IN PLACE, BED ON LOWEST LOCKED POSITION, CALL LIGHT WITHIN REACH. WILL ENDORSE TO DAY SHIFT NURSE FOR NETTA.
[2019-07-15 07:41] LABS: BASOPHILS % (AUTO) 0.4 % (0.0-2.0); EOSINOPHILS % (AUTO) 0.2 % (0.0-6.0); HEMATOCRIT 36 % (39-51); HEMOGLOBIN 11.9 g/dL (13.5-17.5); LYMPHOCYTES # (AUTO) 1.6 /CMM (0.8-4.8); LYMPHOCYTES % (AUTO) 14.2 % (20.0-44.0); MEAN CORPUSCULAR HGB CONC 33 g/dl (31.0-36.0); MEAN CORPUSCULAR VOLUME 79 fL (80-96); MONOCYTES # (AUTO) 1.1 /CMM (0.1-1.30); MONOCYTES % (AUTO) 9.7 % (2.0-12.0); NEUTROPHILS # (AUTO) 8.8 /CMM (1.8-8.9); NEUTROPHILS % (AUTO) 75.5 % (43.0-81.0); PLATELET COUNT (AUTO) 351 /CMM (150-450); RED BLOOD CELL COUNT(AUTO) 4.57 MIL/uL (4.5-6.0); WHITE BLOOD COUNT (AUTO) 11.6 K/uL (4.3-11.0)
[2019-07-15 07:56] LABS: MAGNESIUM 1.9 mg/dL (1.8-2.4); PHOSPHORUS 2.9 mg/dL (2.5-4.9); POTASSIUM 4.2 mmol/L (3.5-5.1)
[2019-07-15 08:00] VITALS: BP 145/82
[2019-07-15 16:00] VITALS: BP 152/85
--- NOTE | 2019-07-15 18:35 | NUR ---
MS RN END OF SHIFT REPORT PT IS A/OX4, AFEBRILE. RESPIRATIONS ARE EVEN AND UNLABORED, NOT IN ANY ACUTE DISTRESS NOTED. PAIN MANAGED BY MORPHINE 2MG IVP Q4H PRN. NO C/O SOB, N/V. +BOWEL SOUNDS, +FLATUS. VOIDS. PT IS AMBULATORY. TOLERATING CLEAR LIQUID DIET. SKIN KEPT CDI. SAFETY MEASURES ARE IN PLACE. ALL NEEDS MET AND RENDERED. CONTINUE W/ POC. WILL ENDORSE TO NEXT SHIFT FOR CONTINUITY OF CARE.
[2019-07-15] MEDS ORDERED: HYDR-3972 PO (19:23)
--- NOTE | 2019-07-15 19:55 | NUR ---
RN NOTES RECEIVED PATIENT AWAKE ALERT ORIENTED X4, REPOSITIONED FOR COMFORT,ALL NEEDS ANTICIPATED. SAFETY MEASURES IN PLACED, IV ACCESS INTACT AND PATENT, CALL LIGHT WITHIN EASY REACH. WILL MONITOR ACCORDINGLY.
[2019-07-15 20:00] VITALS: BP 120/71
[2019-07-15] MEDS: TAMSULOSIN 0.4 MG CAP.SR.24H PO SCH (22:03)
[2019-07-16] MEDS: PIPERACILLIN /TAZOBACTAM 3.375 G in IV D5W 100 ML IV SCH (02:15)
[2019-07-16] MEDS: MORPHINE SULFATE INJ 2 MG/ML DISP.SYRIN IV PRN (02:32)
--- NOTE | 2019-07-16 06:46 | NUR ---
RN NOTES ALL NEEDS ATTENDED AND MET, ABLE TO REST AND SLEPT AT INTERVALS KEPT COMFORTABLE, DENIES PAIN AT THIS TIME, WILL ENDORSE TO AM NURSE FOR CONTINUITY OF CARE.
--- NOTE | 2019-07-16 06:58 | NUR ---
RN NOTES PATIENT AWAKE ALERT ORIENTED X4, REPOSITIONED FOR COMFORT, ABLE TO REST AND SLEPT WITH LONG INTERVALS, PATIENT COMPLAINTS OF PAIN AT THIS TIME, EXPLAINED TO HIM TO DO NON PHARMACOLOGICAL INTERVENTIONS, SUCH DEEP BREATHING , CHANGING POSITION, AND THE RISK AND BENEFITS OF ORAL MEDICATION THAN IV MEDICATIONS SINCE HE IS ALSO FOR DISCHARGE TODAY. PATIENT VERBALIZES UNDERSTANDING. WILL ENDORSE TO AM NURSE FOR CONTINUITY OF CARE.
[2019-07-16 08:00] VITALS: BP 133/76
--- NOTE | 2019-07-16 10:15 | NUR ---
patient cleared for d/c by MD. Patient awake , alert and oriented x4 and ambulatory . Patient received discharged instructions and teaching.Follow up outpatient with colorectal surgeon Dr. [place]: [id number] [address], P# [phone] F# . Patient verbalized understanding. All needs attended prior discharge. IV line removed and ID wrist line removed. D/C instructions sighed , valuable form signed and all belongings with the patient. Skin inspected and patient has no skin issues. Patient safely transferred to the [facility] accompanied by nurse.
== END 2019-07-16 10:30 | disposition home or self-care (01) | DRG 392 ==
LOC: ER 00:30 → MED 03:01
PROVIDERS: ADMIT Hospitalist; ATTEND Hospitalist
DX: K57.20 Diverticulitis of large intestine with perforation and abscess without bleeding (principal); Z68.1 Body mass index [BMI] 19.9 or less, adult; N40.0 Benign prostatic hyperplasia without lower urinary tract symptoms; M47.816 Spondylosis without myelopathy or radiculopathy, lumbar region; M43.16 Spondylolisthesis, lumbar region; K59.00 Constipation, unspecified; F17.210 Nicotine dependence, cigarettes, uncomplicated; E83.42 Hypomagnesemia
CPT/HCPCS: 36415; 72170-TC; 80048-TC; 80061-TC; 83735-TC; 84100-TC; 85025-TC; 87081-TC; A4216; G0378; J2270; J2405; J2543; J3475; J7030; J7040; J7060

== ENCOUNTER 2019-09-23 21:09 | Emergency (ER) | payer MEDICARE, OTHER ==
[~2019-09-23] VITALS: Ht 170.2 cm; Wt 55.3 kg
[~2019-09-23 21:09] MED LIST changes: +HYDR-3972 PO
[2019-09-23 21:26] VITALS: BP 178/98
--- NOTE | 2019-09-23 21:51 | NUR ---
URINE AND LABS SENT.
[2019-09-23 21:52] LABS: BILIRUBIN,URINE SMALL (NEGATIVE); BLOOD, URINE Small Ery/uL (NEGATIVE); COLOR,URINE Yellow (YELLOW); KETONES,URINE Negative (NEGATIVE); LEUKOCYTE ESTERASE ,URINE Negative (NEGATIVE); NITRITE, URINE Negative (NEGATIVE); PROTEIN,URINE 30 mg/dl (NEGATIVE); UGLUCOSE Negative (NEGATIVE)
[2019-09-23 21:54] LABS: BASOPHILS % (AUTO) 0.2 % (0.0-2.0); EOSINOPHILS % (AUTO) 0.2 % (0.0-6.0); HEMATOCRIT 38 % (39-51); HEMOGLOBIN 12.3 g/dL (13.5-17.5); LYMPHOCYTES # (AUTO) 2.1 /CMM (0.8-4.8); LYMPHOCYTES % (AUTO) 17.6 % (20.0-44.0); MEAN CORPUSCULAR HGB CONC 32 g/dl (31.0-36.0); MEAN CORPUSCULAR VOLUME 79 fL (80-96); MONOCYTES # (AUTO) 1.3 /CMM (0.1-1.30); MONOCYTES % (AUTO) 11.2 % (2.0-12.0); NEUTROPHILS # (AUTO) 8.3 /CMM (1.8-8.9); NEUTROPHILS % (AUTO) 70.8 % (43.0-81.0); PLATELET COUNT (AUTO) 282 /CMM (150-450); RED BLOOD CELL COUNT(AUTO) 4.84 MIL/uL (4.5-6.0); WHITE BLOOD COUNT (AUTO) 11.7 K/uL (4.3-11.0)
[2019-09-23 21:54] LABS: APPEARANCE,URINE SLIGHTLY HAZY (CLEAR); BACTERIA,URINE Rare /HPF (None Seen); MUCUS,URINE Moderate /LPF (None Seen); SQUAMOUS EPITHELIAL CELL,UR Rare /HPF (None Seen); WBC,URINE 0-2 /HPF (0-3)
[2019-09-23 22:06] LABS: CALCIUM, SERUM 8.8 mg/dL (8.5-10.1); CREATININE 0.9 mg/dL (0.6-1.3); POTASSIUM 3.4 mmol/L (3.5-5.1)
[2019-09-23 22:11] LABS: ALBUMIN 3.1 g/dL (3.4-5.0); BILIRUBIN,DIRECT 0.1 mg/dL (0.0-0.2); BILIRUBIN,TOTAL 0.5 mg/dL (0.2-1.0); TOTAL PROTEIN, SERUM 8.1 g/dL (6.4-8.2)
[2019-09-23] MEDS ORDERED: HYDROCODONE/APAP 5/325MG 1 EACH TABLET ONE (22:42)
--- NOTE | 2019-09-23 22:53 | NUR ---
Patient discharged to home in stable condition. Written and verbal after care instructions given. Patient verbalizes understanding of instruction. Pt ambulated with steady gait.
[2019-09-23] MEDS ORDERED: HYDROCODONE/APAP 5/325MG 1 EACH TABLET PO ONE (23:00)
== END 2019-09-23 22:56 | disposition home or self-care (01) ==
LOC: ER 21:13
DX: R10.30 Lower abdominal pain, unspecified (principal); Z60.2 Problems related to living alone
CPT/HCPCS: 36415; 80048-TC; 80076-TC; 81000-TC; 83690-TC; 85025-TC